=== PATIENT | female | born 1940 | race Hispanic/Latino ===

== ENCOUNTER 2019-11-05 09:35 | Observation (INO) | payer MEDICARE, OTHER ==
--- OUTSIDE RECORDS SUMMARY | 2019-11-05 09:38 | XMS REPORT | Summary of Care ---
:[address] [facility] - [facility] Address [address] [place] [address] Care Team Providers Name Role Phone Angella Skelton MD Primary Care Provider Reason for Referral Radiology Services (Routine) Status Reason Specialty Diagnoses / Referred By Referred To Procedures Contact Contact Closed Diagnostic Diagnoses History of breast problem Disorder of breast N64.9 (ICD-10-CM) - Disorder of breast Z87.898 (ICD-10-CM) - History of breast problem Huyen Serrano MD Radiology Procedures BI ULTRASOUND BREAST LIMITED RIGHT CHG US BREAST UNI REAL TIME WITH IMAGE LIMITED [id number] - BI ULTRASOUND BREAST LIMITED RIGHT [id number] - CHG US BREAST UNI REAL TIME WITH IMAGE LIMITED [address] [place] [address] DR. Stauffer [address] [place] [address] Radiology Services (Routine) Status Reason Specialty Diagnoses / Referred By Referred To Procedures Contact Contact Closed Diagnostic Diagnoses History of breast problem Disorder of breast N64.9 (ICD-10-CM) - Disorder of breast Z87.898 (ICD-10-CM) - History of breast problem Huyen Serrano MD Radiology Procedures BI ULTRASOUND BREAST LIMITED RIGHT CHG US BREAST UNI REAL TIME WITH IMAGE LIMITED [id number] - BI ULTRASOUND BREAST LIMITED RIGHT [id number] - CHG US BREAST UNI REAL TIME WITH IMAGE LIMITED [address] [place] [address] DR. Stauffer [address] [place] [address] Reason for Visit Radiology Services (Routine) Status Reason Specialty Diagnoses / Referred By Referred To Procedures Contact Contact Closed Diagnostic Diagnoses History of breast problem Disorder of breast N64.9 (ICD-10-CM) - Disorder of breast Z87.898 (ICD-10-CM) - History of breast problem Huyen Serrano MD Radiology Procedures BI ULTRASOUND BREAST LIMITED RIGHT CHG US BREAST UNI REAL TIME WITH IMAGE LIMITED [id number] - BI ULTRASOUND BREAST LIMITED RIGHT [id number] - CHG US BREAST UNI REAL TIME WITH IMAGE LIMITED [address] [place] [address] DR. [address] [place] [address] Encounter Details Date Type Department Care Team Description 05/23/2019 Hospital Encounter [facility] Huyen Serrano MD Arrived [facility] [address] [place] [address] [place] [address] [address] [place], [place] [address] Allergies No Known Allergiesdocumented as of this encounter (statuses as of 05/24/2019) Medications Medication Sig Dispensed Refills Start Date End Date Status montelukast 10 mg Take 1 tablet by 90 tablet 3 12/10/2018 Active tabletIndications: mouth daily. Other seasonal allergic rhinitis metoprolol succinate XL Take 1 tablet by 90 tablet 3 12/10/2018 Active 25 mg 24 hr mouth daily. tabletIndications: Hypertension, unspecified type atorvastatin 40 mg TAKE 1 TABLET BY 90 tablet 3 12/10/2018 Active tabletIndications: MOUTH AT BEDTIME Mixed hyperlipidemia estradiol 0.01 % (0.1 Insert 1 g into 42.5 g 6 01/02/2019 Active mg/gram) vaginal vagina daily. creamIndications: Postmenopausal atrophic vaginitis TURMERIC ORAL Take by mouth. 0 Active calcium carb and Take 1 180 tablet 3 02/06/2019 Active citrate-vitD3 (CITRACAL TAB-CAP/M2 by + D SLOW RELEASE) 600 mouth 2 (two) mg calcium- 500 unit times daily. TbSRIndications: Senile osteoporosis ibuprofen 600 mg Take 1 tablet by 30 tablet 0 05/02/2019 Active tabletIndications: mouth 3 (three) Strain of neck muscle, times daily with initial encounter meals. Diclofenac Sodium 1 % Take 2-4 grams 100 g 3 05/09/2019 Active gelIndications: Chronic three times a pain of left knee, day as needed Muscle spasm for pain ibandronate 150 mg Take 1 tablet by 3 tablet 3 05/09/2019 Active tabletIndications: mouth once every Age-related month. osteoporosis without current pathological fracture cyanocobalamin, vitamin Take by mouth. 0 Active B-12, (VITAMIN B-12 ORAL) documented as of this encounter (statuses as of 05/24/2019) Active Problems Problem Noted Date Recurrent UTI 01/09/2019 Overview: 02/06/19 - urine culture no growth Nocturia 01/02/2019 Postmenopausal atrophic vaginitis 01/02/2019 Overview: December 2018 - intravaginal Estrogen cream started. Urinary urgency 01/02/2019 Dysuria 01/02/2019 Recurrent colitis due to Clostridium difficile 09/16/2018 Fever of unknown origin 09/15/2018 FUO (fever of unknown origin) 09/14/2018 Fall 09/14/2018 C. difficile colitis 08/04/2018 SIRS (systemic inflammatory response syndrome) 08/02/2018 Mixed incontinence 09/27/2016 History of bladder repair surgery 09/14/2016 History of hysterectomy 09/14/2016 Back pain 05/11/2016 Foot pain 05/11/2016 Pre-ulcerative calluses 01/17/2016 Other seasonal allergic rhinitis 01/17/2016 Chronic left shoulder pain 01/17/2016 Leg skin lesion, left 01/17/2016 Seborrheic keratosis 01/17/2016 Post-nasal drainage 07/27/2015 Sore throat 07/27/2015 Insomnia 07/27/2015 Hypotension due to drugs 07/27/2015 Bradycardia, drug induced 07/27/2015 Osteoarthritis 01/22/2015 Essential hypertension, benign 01/21/2015 Mixed hyperlipidemia 01/21/2015 Osteoporosis 01/21/2015 Rosacea 01/21/2015 Depression 01/21/2015 documented as of this encounter (statuses as of 05/24/2019) Resolved Problems Problem Noted Date Resolved Date OAB (overactive bladder) 01/21/2015 10/14/2015 Urinary incontinence, nocturnal enuresis 01/21/2015 10/14/2015 documented as of this encounter (statuses as of 05/24/2019) Immunizations Name Administration Dates Next Due Influenza High Dose 08/10/2018, 08/10/2016 Influenza Virus Vaccine Quad ID [id number] 08/03/2015 Pneumococcal 13 Conjugate, PCV13 (Prevnar 13) 10/04/2016 Tdap 02/15/2016 Zoster(Zostavax)(Shingles) 10/04/2016 documented as of this encounter Social History Tobacco Use Types Packs/Day Years Used Date Never Smoker Smokeless Tobacco: Never Used Alcohol Use Drinks/Week oz/Week Comments No 0 Standard drinks or equivalent 0.0 Sex Assigned at Date Recorded Not on file Job Start Date Occupation Industry Not on file Not on file Not on file Travel History Travel Start Travel End No recent travel history available. documented as of this encounter Last Filed Vital Signs Not on filedocumented in this encounter Plan of Treatment Date Type Specialty Care Team Description 08/09/2019 Office Visit Internal Medicine Angella Skelton MD [address] [place] [address] Dr Stauffer [address] [place] [address] [phone] 02/05/2020 Office Visit Endocrinology Diabetes & Jose Alfredo Partida MD [address] [address] [phone] 05/18/2020 Office Visit Obstetrics & Gynecology Huyen Serrano MD [address] [place] [address] DR. Stauffer [address] [place] [address] [phone] Health Maintenance Due Date Last Done Comments PNEUMOCOCCAL VACCINES 65+ 10/04/2017 10/04/2016 (2 of 2 - PPSV23) Medicare Wellness Visit 12/04/2018 12/04/2017 INFLUENZA VACCINE 06/23/2019 08/10/2018, 08/10/2016, 08/03/2016 (Previously completed), Additional history exists Zoster Recombinant Vaccine 12/13/2019 10/04/2016 Postponed from ([employer]) (2 of 3) 11/29/2016 (Insurance / Financial) DTaP,Tdap,and Td Vaccines 02/14/2026 02/15/2016 (2 - Td) Osteoporosis Screening Completed 12/21/2018 documented as of this encounter Implants Implanted Type Area Brewery Cellar Worker Device Identifier Shelf Expiration Model / Date Serial / Lot Left Shoulder Hardware documented as of this encounter Procedures Procedure Name Priority Date/Time Associated Comments Diagnosis BI ULTRASOUND BREAST Routine 05/23/2019 3:24 PM History of breast Results for this LIMITED RIGHT CDT problem procedure are in Disorder of breast the results section. documented in this encounter Results BI ULTRASOUND BREAST LIMITED RIGHT (05/23/2019 3:24 PM CDT) Specimen Narrative Performed At Examination: PACS BI ULTRASOUND BREAST LIMITED RIGHT History: Patient is 79 year old and is seen for:If applicable. No relevant family history has been documented for this patient. No relevant hormone history has been documented for this patient. No relevant surgical history has been documented for this patient. No relevant medical history has been documented for this patient. Comparisons: 05/22/2017 SCREENING DIGITAL BREAST CAITLIN, 05/18/2016 DIGITAL MAMMOGRAM, SCREENING, and 05/15/2015 DIGITAL MAMMOGRAM, SCREENING HISTORY: Palpable mass in right breast. TECHNIQUE: Retroareolar/periareolar regions of the right breast were evaluated in radial/antiradial/sagittal/coronal planes both by the technologist and by me. Female technologist was present in the room during all imaging evaluations. FINDINGS: No solid mass detected. An oval-shaped anechoic lesion of approximately 4.3 x 2.2 mm size was noted in the retroareolar region consistent with a small cyst. CONCLUSIONS: No worrisome solid masses detected. Annual bilateral mammography evaluation is appropriate. ACR classification: Category II. Recommendation: Annual mammographic follow-up - Right BI-RADS Category: Right 2 - Benign Performing Organization Address City/State/Zipcode Phone Number PACS documented in this encounter Visit Diagnoses Diagnosis History of breast problem Disorder of breast Unspecified breast disorder documented in this encounter Insurance Payer Benefit Plan / Subscriber ID Effective Dates Phone Address Type Group MEDICARE MEDICARE PART xxxxxxxxxxx 2005-Eugene [phone] [address] Medicare A & B t 2 [id number] [address] [phone] ([place]) [place] [address] documented as of this encounter
--- OUTSIDE RECORDS SUMMARY | 2019-11-05 09:38 | XMS REPORT | Summary of Care ---
:1940 Author Organization [facility] - [facility] Address [address] [place] [address] Care Team Providers Name Role Phone Angella Skelton MD Primary Care Provider Reason for Referral Radiology Services (Routine) Status Reason Specialty Diagnoses / Referred By Referred To Procedures Contact Contact Closed Diagnostic Diagnoses Disorder of breast History of breast problem N64.9 (ICD-10-CM) - Disorder of breast Z87.898 (ICD-10-CM) - History of breast problem Serrano, Huyen Cam, Radiology Procedures BI DIAGNOSTIC MAMMOGRAM BILATERAL CHG DIAGNOSTIC MAMMOGRAPHY COMPUTER-AIDED DETCJ BI [id number] - BI DIAGNOSTIC MAMMOGRAM BILATERAL 95095 - CHG DIAGNOSTIC MAMMOGRAPHY COMPUTER-AIDED DETCJ JIMMIE DE PAZ [address] [place] [address] [place] [address] Radiology Services (Routine) Status Reason Specialty Diagnoses / Referred By Referred To Procedures Contact Contact Closed Diagnostic Diagnoses Disorder of breast History of breast problem N64.9 (ICD-10-CM) - Disorder of breast Z87.898 (ICD-10-CM) - History of breast problem Serrano, Huyen Cam, Radiology Procedures BI DIAGNOSTIC MAMMOGRAM BILATERAL CHG DIAGNOSTIC MAMMOGRAPHY COMPUTER-AIDED DETCJ BI [id number] - BI DIAGNOSTIC MAMMOGRAM BILATERAL 75909 - CHG DIAGNOSTIC MAMMOGRAPHY COMPUTER-AIDED DETCJ JIMMIE DE PAZ [address] [place] [address] [place] [address] Reason for Visit Radiology Services (Routine) Status Reason Specialty Diagnoses / Referred By Referred To Procedures Contact Contact Closed Diagnostic Diagnoses Disorder of breast History of breast problem N64.9 (ICD-10-CM) - Disorder of breast Z87.898 (ICD-10-CM) - History of breast problem Huyen Serrano, Radiology Procedures BI DIAGNOSTIC MAMMOGRAM BILATERAL CHG DIAGNOSTIC MAMMOGRAPHY COMPUTER-AIDED DETCJ BI [id number] - BI DIAGNOSTIC MAMMOGRAM BILATERAL 20286 - CHG DIAGNOSTIC MAMMOGRAPHY COMPUTER-AIDED DETCJ BI [address] [place] [address] DR. Stauffer [address] [place] [address] Encounter Details Date Type Department Care Team Description 05/23/2019 Hospital Encounter [facility] Huyen Serrano MD Arrived [facility] [address] [place] [address] [place] [address] [facility] [address] [place] [address] [phone] Allergies No Known Allergiesdocumented as of this [...] Office Visit Internal Medicine Angella Skelton MD [address] [place] [address] Dr [address]ffer [address] [place] [address] [phone] 02/05/2020 Office Visit Endocrinology Diabetes & Jose Alfredo Partida MD [address] [address] 05/18/2020 Office Visit Obstetrics & Gynecology Huyen Serrano MD [address] [place] [address] DR. Stauffer [address] [place] [address] [phone] Health Maintenance Due Date Last Done Comments [...] of this encounter Implants Implanted Type Area Heavy Coil Winder Device Identifier Shelf Expiration Model / Date Serial / Lot Left Shoulder Hardware documented as of this encounter Procedures Procedure Name Priority Date/Time Associated Comments Diagnosis BI DIAGNOSTIC Routine 05/23/2019 2:32 PM Disorder of breast Results for this MAMMOGRAM BILATERAL CDT History of breast procedure are in problem the results section. documented in this encounter Results BI DIAGNOSTIC MAMMOGRAM BILATERAL (05/23/2019 2:32 PM CDT) Specimen Narrative Performed At Examination: PACS BI DIAGNOSTIC MAMMOGRAM BILATERAL History: Patient is 79 year old and is seen for:Right breast feels lumpy at the areolar portion. No relevant family history has been documented for this patient. No relevant hormone history has been documented for this patient. No relevant surgical history has been documented for this patient. No relevant medical history has been documented for this patient. Computer-aided detection (CAD) utilized. Comparisons: 05/22/2017 SCREENING DIGITAL BREAST CAITLIN (No Change), 05/18/2016 DIGITAL MAMMOGRAM, SCREENING (No Change), and 05/15/2015 DIGITAL MAMMOGRAM, SCREENING (No Change) Findings: The breasts have scattered areas of fibroglandular density. Right There are large joanna-like calcifications seen in the right breast. Left There are large joanna-like and round calcifications seen in the left breast. Impression: No signs of malignancy. However, we will proceed with ultrasound study of RIGHT breast because of abnormal physical examination. Recommendation: Ultrasound - Right Annual mammographic follow-up - Left BI-RADS Category: Left: 2 - Benign Right: 0 - Incomplete: Needs Additional Imaging Evaluation Overall: 0 - Incomplete: Needs Additional Imaging Evaluation Performing Organization Address City/State/Zipcode Phone Number PACS documented in this encounter Visit Diagnoses Diagnosis Disorder of breast Unspecified breast disorder History of breast problem documented in this encounter Insurance Payer Benefit Plan / Subscriber ID Effective Dates Phone Address Type Group MEDICARE MEDICARE PART xxxxxxxxxxx 2005-Eugene [phone] [address] Medicare A & B t 2 [id number] [address] [phone] ([place]) [place] [address] documented as of this encounter
--- OUTSIDE RECORDS SUMMARY | 2019-11-05 09:38 | XMS REPORT | Summary of Care ---
:1940 Author Organization [facility] - Health Address [address] [id number] Care Team Providers Name Role Phone Angella Skelton MD Primary Care Provider Encounter Details Date Type Department Care Team Description 05/23/2019 Orders Only [facility] Doctor Unassigned, No [address] [facility] [place] [address] [address] [place] [address] Allergies No Known Allergiesdocumented as of this encounter (statuses as of 05/23/2019) Medications Medication Sig Dispensed Refills Start Date [...] as of this encounter (statuses as of 05/23/2019) Active Problems Problem Noted Date Recurrent UTI [...] as of this encounter (statuses as of 05/23/2019) Resolved Problems Problem Noted Date Resolved Date OAB (overactive bladder) 01/21/2015 10/14/2015 Urinary incontinence, nocturnal enuresis 01/21/2015 10/14/2015 documented as of this encounter (statuses as of 05/23/2019) Immunizations Name Administration Dates Next Due Influenza [...] Treatment Date Type Specialty Care Team Description 05/23/2019 Appointment Radiology Huyen Serrano MD [address] [place] [address] DR. Stauffer [address] [place] [address] [phone] 05/23/2019 Appointment Radiology Huyen Serrano MD [address] [place] [address] DR. Stauffer [address] [place] [address] [phone] 08/09/2019 Office Visit Internal Medicine Angella Skelton MD [address] [place] [address] Dr Stauffer [address] [place] [address] 02/05/2020 Office Visit Endocrinology Diabetes & Jose Alfredo Partida MD Metabolism [address] [place] [address] [phone] 05/18/2020 Office Visit Obstetrics & Gynecology Huyen Serrano MD [address] [place] [address] DR. Stauffer [address] [place] [address] [phone] Health Maintenance Due Date Last Done Comments [...] of this encounter Implants Implanted Type Area Sumo Wrestler Device Identifier Shelf Expiration Model / Date Serial / Lot Left Shoulder Hardware documented as of this encounter Procedures Procedure Name Priority Date/Time Associated Diagnosis Comments ASSIGNMENT OF BENEFITS Routine 05/23/2019 1:20 PM CDT documented in this encounter Results Not on filedocumented in this encounter Insurance Payer Benefit Plan Subscriber ID Effective Phone Address Type / Group Dates MEDICARE MEDICARE PART xxxxxxxxxxx 2005-Pres [phone] [address] Medicare A & B ent [id number] SU[place]ERR [id number] [facility]DIG[facility]ARE [facility] [id number] 2019-10/[address] [place] [address] 02/2020 [place] [address] documented as of this encounter
--- OUTSIDE RECORDS SUMMARY | 2019-11-05 09:38 | XMS REPORT ---
:1940 Author Organization [facility] Address [address] [place] [address] Dr. Dsouza [address] [place] [address] Care Team Providers Name Role Phone Unavailable Unavailable Unavailable Problems This patient has no known problems. Allergies, Adverse Reactions, Alerts This patient has no known allergies or adverse reactions. Medications This patient has no known medications.
--- OUTSIDE RECORDS SUMMARY | 2019-11-05 09:39 | XMS REPORT | Summary of Care ---
:1940 Author Organization [facility] - [facility] Address [address] [id number] Care Team Providers Name Role Phone Angella Skelton MD Primary Care Provider Reason for Referral (Routine) Status Reason Specialty Diagnoses / Referred By Referred To Procedures Contact Contact New Request ORT-ORTHOPAEDIC Diagnoses Closed fracture of multiple pubic rami, left, initial encounter David Moreno , SURGERY Procedures Discharge Follow-Up: Specialty Service ORT-ORTHOPAEDIC SURGERY; [address] [place] [address]. [address] [id number] (Routine) Status Reason Specialty Diagnoses / Referred By Contact Referred To Procedures Contact New Request Diagnoses Closed fracture of multiple pubic rami, left, initial encounter David Moreno MD Jaramillo, Procedures Discharge Follow-up: PCP ANGELLA SKELTON; 3-[address] [place] [address] Angella Stacy MD [facility] [address] [place] [address] [address] [phone] [place] [address] Phone: MRI/CAT Scan (STAT) Status Reason Specialty Diagnoses / Referred By Referred To Procedures Contact Contact New Request Diagnostic Diagnoses Closed fracture of multiple pubic rami, left, initial encounter Paredes, Ting S , Radiology Procedures CT PELVIS WO CONTRAST PAC [address] [place] [address] MRI/CAT Scan (STAT) Status Reason Specialty Diagnoses / Referred By Referred To Procedures Contact Contact New Request Diagnostic Diagnoses Closed fracture of multiple pubic rami, left, initial encounter Paredes, Ting S , Radiology Procedures CT PELVIS WO CONTRAST PAC [address] [place] [address] Radiology Services (STAT) Status Reason Specialty Diagnoses / Referred By Referred To Procedures Contact Contact New Request Diagnostic Diagnoses Fall, initial encounter Left hip pain Paredes, Ting S, Radiology Procedures XR PELVIS <3 VW PAC [address] [place] [address] Radiology Services (STAT) Status Reason Specialty Diagnoses / Referred By Referred To Procedures Contact Contact New Request Diagnostic Diagnoses Fall, initial encounter Left hip pain Paredes, Ting S, Radiology Procedures XR PELVIS <3 VW PAC [address] [place] [address] Radiology Services (STAT) Status Reason Specialty Diagnoses / Referred By Referred To Procedures Contact Contact New Request Diagnostic Diagnoses Fall, initial encounter Left hip pain Neck pain Paredes, Ting S, Radiology Procedures XR HIPS 2 VW LEFT PAC [address] [place] [address] MRI/CAT Scan (STAT) Status Reason Specialty Diagnoses / Referred By Referred To Procedures Contact Contact New Request Diagnostic Diagnoses Fall, initial encounter Left hip pain Neck pain Paredes, Ting S, Radiology Procedures CT CERVICAL SPINE WO CONTRAST PAC [address] [place] [address] Radiology Services (STAT) Status Reason Specialty Diagnoses / Referred By Referred To Procedures Contact Contact New Request Diagnostic Diagnoses Fall, initial encounter Left hip pain Neck pain Paredes, Ting S, Radiology Procedures XR HIPS 2 VW LEFT PAC [address] [place] [address] MRI/CAT Scan (STAT) Status Reason Specialty Diagnoses / Referred By Referred To Procedures Contact Contact New Request Diagnostic Diagnoses Fall, initial encounter Left hip pain Neck pain Ting Paredes, Radiology Procedures CT CERVICAL SPINE WO CONTRAST [address] [place] [address] Reason for Visit Reason Comments Fall Auth/Cert Status Reason Specialty Diagnoses / Referred By Referred To Procedures Contact Contact Emergency Medicine [facility] Emergency Dept [address] [place] [address] Dr [place] [id number] Encounter Details Date Type Department Care Team Description 07/06/[address] - [facility] Medicine Ting Paredes, [address] [place] [id number] Closed fracture of 07/08/2019 Encounter Surgery Unit Mindy Varela MD [address] [place] [phone] multiple pubic [address] [place] [address] rami, left, initial Dr encounter [place] Nguyen [id number] Allergies No Known Allergiesdocumented as of this encounter (statuses as of 07/08/2019) Medications Medication Sig Dispensed Refills Start Date End Date Status montelukast 10 mg Take 1 tablet 90 tablet 3 12/10/2018 Active tabletIndications: by mouth daily. Other seasonal allergic rhinitis metoprolol succinate Take 1 tablet 90 tablet 3 12/10/2018 Active XL 25 mg 24 hr by mouth daily. tabletIndications: Hypertension, unspecified type atorvastatin 40 mg TAKE 1 TABLET 90 tablet 3 12/10/2018 Active tabletIndications: BY MOUTH AT Mixed hyperlipidemia BEDTIME estradiol 0.01 % (0.1 Insert 1 g into 42.5 g 6 01/02/2019 Active mg/gram) vaginal vagina daily. creamIndications: Postmenopausal atrophic vaginitis TURMERIC ORAL Take by mouth. 0 Active calcium carb and Take 1 180 tablet 3 02/06/2019 Active citrate-vitD3 TAB-CAP/M2 by (CITRACAL + D SLOW mouth 2 (two) RELEASE) 600 mg times daily. calcium- 500 unit TbSRIndications: Senile osteoporosis ibuprofen 600 mg Take 1 tablet 30 tablet 0 05/02/2019 Active tabletIndications: by mouth 3 Strain of neck muscle, (three) times initial encounter daily with meals. Diclofenac Sodium 1 % Take 2-4 grams 100 g 3 05/09/2019 Active gelIndications: three times a Chronic pain of left day as needed knee, Muscle spasm for pain ibandronate 150 mg Take 1 tablet 3 tablet 3 05/09/2019 Active tabletIndications: by mouth once Age-related every month. osteoporosis without current pathological fracture cyanocobalamin, Take by mouth. 0 Active vitamin B-12, (VITAMIN B-12 ORAL) docusate 100 mg Take 1 capsule 60 capsule 0 07/08/2019 08/07/2019 Active capsuleIndications: by mouth 2 Closed fracture of (two) times multiple pubic rami, daily for 30 left, initial days. encounter lidocaine 5 % (700 Apply 1 Patch 7 Patch 0 07/08/2019 07/15/2019 Active mg/patch) to area(s) patchIndications: daily for 7 Closed fracture of days. multiple pubic rami, left, initial encounter traMADol 50 mg Take 1 tablet 14 tablet 0 07/08/2019 Active tabletIndications: by mouth every Closed fracture of 8 (eight) hours multiple pubic rami, as needed for left, initial Pain (scale encounter 4-6). Polyethylene Glycol Take 1 Packet 8 Packet 0 07/08/2019 08/07/2019 Active 3350 17 gram by mouth 2 powderIndications: (two) times Closed fracture of weekly on multiple pubic rami, Monday and left, initial Monday for 30 encounter days. documented as of this encounter (statuses as of 07/08/2019) Active Problems Problem Noted Date Closed fracture of multiple pubic rami, left, initial encounter 07/06/2019 Recurrent UTI 01/09/2019 Overview: 02/06/19 - urine [...] as of this encounter (statuses as of 07/08/2019) Resolved Problems Problem Noted Date Resolved Date OAB (overactive bladder) 01/21/2015 10/14/2015 Urinary incontinence, nocturnal enuresis 01/21/2015 10/14/2015 documented as of this encounter (statuses as of 07/08/2019) Immunizations Name Administration Dates Next Due Influenza High Dose 08/10/2018, 08/10/2016 Influenza Virus Vaccine Quad ID [id number] YRS 08/03/2015 Pneumococcal 13 Conjugate, PCV13 (Prevnar 13) 10/04/2016 Tdap 02/15/2016 Zoster(Zostavax)(Shingles) 10/04/2016 documented as of this encounter Social History Tobacco Use Types Packs/Day Years Used Date Never Smoker Smokeless Tobacco: Never Used Tobacco Cessation: Counseling Given: No Alcohol Use Drinks/Week oz/Week Comments No 0 Standard drinks or equivalent 0.0 Financial Resource Strain Answer Date Recorded How hard is it for you to pay for the very basics like Not hard at all 2018 food, housing, medical care, and heating? Food Insecurity Answer Date Recorded Within the past 12 months, you worried that your food would Never true 2018 run out before you got money to buy more. Within the past 12 months, the food you bought just didn't Never true 2018 last and you didn't have money to get more. Transportation Needs Answer Date Recorded In the past 12 months, has lack of transportation kept you from No 07/06/2019 medical appointments or from getting medications? In the past 12 months, has lack of transportation kept you from No 07/06/2019 meetings, work, or getting things needed for daily living? Sex Assigned at Date Recorded Not on file Job Start Date Occupation Industry Not on file Not on file Not on file Travel History Travel Start Travel End No recent travel history available. documented as of this encounter Last Filed Vital Signs Vital Sign Reading Time Taken Comments Blood Pressure 127/67 07/08/2019 3:36 PM CDT Pulse 60 07/08/2019 3:36 PM CDT Temperature 37.1 C (98.7 F) 07/08/2019 3:36 PM CDT Respiratory Rate 18 07/08/2019 3:36 PM CDT Oxygen Saturation 94% 07/08/2019 3:36 PM CDT Inhaled Oxygen Concentration - - Weight 69 kg (152 lb 1.6 oz) 07/06/2019 9:20 PM CDT Height 147.3 cm (4' 10") 07/06/2019 9:20 PM CDT Body Mass Index 31.79 07/06/2019 9:20 PM CDT documented in this encounter Discharge Summaries David Moreno MD - 07/08/2019 2:03 PM CDT Internal Medicine Discharge Summary ADMIT DATE: 07/06/2019 DISCHARGE DATE: 07/08/2019 ATTENDING MD: David Moreno MD PCP: Angella Skelton FINAL DIAGNOSIS: (the reason, after study, for admitting the patient to the hospital) Closed fracture of multiple pubic rami, left, initial encounter HOSPITAL COURSE: Left pubic rami fracture with hematoma s/p mechanical fall Ortho Dr. Verduzco on board - Mobilize as tolerated with walker, ok to be WBAT. F/U as needed, anticipate significant pain x 2 weeks with healing at 6 weeks. Scheduled NSAIDs. Narcotics prn. Lidocaine patch PT consulted for placement H/h stable Patient discharged to [facility] rehab HTN On metoprolol Hx of osteoporosis, hyperlipidemia, superficial thrombophlebitis, c diff No diarrhea reported Prophylaxis: DVT- enoxaparin Full Code, advance care planning discussed on admission CONSULTING SERVICES: Dr. Verduzco - ortho PROCEDURES: none SIGNIFICANT LAB/X-RAYS: LABS - reviewed pertinent labs as below: CBC BMP PT/INR WBC (10*3/L) Date Value 07/07/2019 5.53 NA (mmol/L) Date Value 07/07/2019 140 No results found for: PT RBC (10*6/L) Date Value 07/07/2019 4.15 K (mmol/L) Date Value 07/07/2019 4.3 No results found for: PTINR PLT (10*3/L) Date Value 07/07/2019 85 (L) CALCIUM (mg/dL) Date Value 07/07/2019 9.3 HGB (g/dL) Date Value 07/07/2019 13.0 CL (mmol/L) Date Value 07/07/2019 106 aPTT HCT (%) Date Value 07/07/2019 39.8 BUN (mg/dL) Date Value 07/07/2019 27 (H) No results found for: APTTPAT CREATININE (mg/dL) Date Value 07/07/2019 0.58 IMAGING - reviewed Hospital Encounter on 07/06/19 XR PELVIS <3 VW Narrative EXAM: XR PELVIS <3 VW HISTORY: pelvis and left hip pain COMPARISON: None available. FINDINGS: Radiographs of the pelvis demonstrate suspected discontinuity of the left superior pubic rami. A nondisplaced fracture of the left inferior pubic ramus is also noted. Sclerosis of the bilateral sacroiliac joints is identified. Moderate to severe lumbosacral junction spondylosis and facet arthropathy are seen. Mild soft tissue swelling is noted diffusely about the pelvis. Hernia mesh is seen. Impression Left superior and inferior pubic rami fractures. Dayna Angulo MD., have reviewed this study and agree with the above report. XR HIPS 2 VW LEFT Narrative EXAM: XR HIPS 2 VW LEFT HISTORY: hip pain left, fall COMPARISON: Left hip radiograph 09/14/2018. FINDINGS: Radiographs of the left hip demonstrate no fracture or dislocation. Mild joint space narrowing, subchondral sclerosis affects the left hip. The soft tissues are unremarkable. Impression No acute bony abnormality. Mild osteoarthrosis of the left hip. REPORT CHANGE: Left superior-inferior pubic rami fractures are seen, better evaluated on the subsequently performed CT pelvis. Dayna Angulo MD., have reviewed this study and agree with the above report. CT PELVIS WO CONTRAST Narrative EXAM: CT PELVIS WO CONTRAST HISTORY: Pelvic fx, known or suspected COMPARISON: None available. TECHNIQUE: Helical CT scan of the pelvis was performed without intravenous contrast. Coronal, sagittal and 3-D reconstructions were then generated. FINDINGS: CT imaging of the pelvis demonstrate: BONE AND JOINT: Minimally displaced segmental fracture of the right superior pubic ramus and nondisplaced fracture of the left inferior pubic ramus are identified. SOFT TISSUES/INTRAPELVIC CONTENTS: Swelling with fluid collection is noted within the left pelvic sidewall adjacent to the pubic rami fractures and likely represents early hematoma formation. This hematoma exerts mass effect in the pelvis in the form of rightward displacement of the urinary bladder. The urinary bladder is mildly distended. Prior hysterectomy. Round mixed hyperdense/hypodense calcified lesion adjacent to the rectum may represent fat necrosis (axial image 48). Impression Left superior and inferior pubic rami fractures with adjacent intrapelvic hematoma. IDayna MD., have reviewed this study and agree with the above report. CT CERVICAL SPINE WO CONTRAST Narrative * * * * * * * * ORIGINAL REPORT * * * * * * * * CT CERVICAL SPINE WO CONTRAST HISTORY: Female 79 years C-spine trauma, high clinical risk (NEXUS/CCR) COMPARISON: None TECHNIQUE: Routine CT cervical spine without contrast FINDINGS: Slight reversal of the normal cervical lordosis. The vertebral bodies are normal in height and in normal alignment. No facet fracture or subluxation is present. The craniocervical junction is intact. The prevertebral soft tissues are unremarkable. Moderate spondylosis and uncinate hypertrophy are present at C5-C6 with no more than minimal degenerative changes at the remaining cervical levels. Impression No acute cervical fracture or traumatic malalignment Subjective has pain with movement No fevers/chills, sob, chest pain, confusion,n abd pain, n/v Ok with discharge plan to encompass today Physical Exam General: No respiratory distress Skin: No rash or lesions, normal turgot Neuro: AAOx3, no focal deficits Psych: Normal affect RRR Good air entry b/l FUNCTIONAL STATUS: ambulate with assistance DISCHARGE CONDITION: fair COGNITIVE STATUS: cognitively intact DIET: regular ACTIVITY: as tolerated DISCHARGE MEDICATIONS: Current Discharge Medication List START taking these medications Details docusate (COLACE) 100 mg Take 100 mg by mouth 2 (two) times daily. Qty: 60 capsule, Refills: 0 Start date: 07/08/2019, End date: 08/07/2019 Associated Diagnoses: Closed fracture of multiple pubic rami, left, initial encounter lidocaine (LIDODERM) 1 Patch Apply 1 Patch to area(s) daily. Qty: 7 Patch, Refills: 0 Start date: 07/08/2019, End date: 07/15/2019 Associated Diagnoses: Closed fracture of multiple pubic rami, left, initial encounter Polyethylene Glycol 3350 (MIRALAX) 17 g Take 17 g by mouth 2 (two) times weekly on Monday and Monday. Qty: 8 Packet, Refills: 0 Start date: 07/08/2019, End date: 08/07/2019 Associated Diagnoses: Closed fracture of multiple pubic rami, left, initial encounter traMADol (ULTRAM) 50 mg Take 50 mg by mouth every 8 (eight) hours as needed for Pain (scale 4-6). Qty: 14 tablet, Refills: 0 Start date: 07/08/2019 Associated Diagnoses: Closed fracture of multiple pubic rami, left, initial encounter CONTINUE these medications which have NOT CHANGED Details cyanocobalamin, vitamin B-12, (VITAMIN B-12 ORAL) Take by mouth. Diclofenac Sodium 1 % gel Take 2-4 grams three times a day as needed for pain Qty: 100 g, Refills: 3 Associated Diagnoses: Chronic pain of left knee; Muscle spasm ibandronate (BONIVA) 150 mg Take 150 mg by mouth once every month. Qty: 3 tablet, Refills: 3 Associated Diagnoses: Age-related osteoporosis without current pathological fracture ibuprofen (IBU) 600 mg Take 600 mg by mouth 3 (three) times daily with meals. Qty: 30 tablet, Refills: 0 Associated Diagnoses: Strain of neck muscle, initial encounter calcium carb and citrate-vitD3 (CITRACAL + D SLOW RELEASE) 1 TAB-CAP/M2 Take 1 TAB-CAP/M2 by mouth 2(two) times daily. Qty: 180 tablet, Refills: 3 Associated Diagnoses: Senile osteoporosis TURMERIC ORAL Take by mouth. estradiol (ESTRACE) 1 g Insert 1 g into vagina daily. Qty: 42.5 g, Refills: 6 Associated Diagnoses: Postmenopausal atrophic vaginitis atorvastatin 40 mg tablet TAKE 1 TABLET BY MOUTH AT BEDTIME Qty: 90 tablet, Refills: 3 Associated Diagnoses: Mixed hyperlipidemia metoprolol succinate XL (TOPROL XL) 25 mg Take 25 mg by mouth daily. Qty: 90 tablet, Refills: 3 Associated Diagnoses: Hypertension, unspecified type montelukast (SINGULAIR) 10 mg Take 10 mg by mouth daily. Qty: 90 tablet, Refills: 3 Associated Diagnoses: Other seasonal allergic rhinitis PATIENT EDUCATION PROVIDED: medications DISCHARGE: [facility] inpatient rehab FOLLOW-UP APPOINTMENT: Future Appointments Provider Department Dept Phone Center 07/22/2019 1:00 PM Tereso Ham MD [facility] Primary [facility]- [phone] [place] [address] 08/09/2019 3:20 PM Angella Skelton MD [facility] Primary [facility]- [address] [address] [facility] 02/05/2020 11:00 AM JoseA lfredo Partida MD [facility] Endocrinology- [address] [phone] [place] 05/18/2020 10:30 AM Huyen Serrano MD [facility] Women's Healthcare- [address] [address] [facility] Please call paging services at [phone] to contact David Moreno MD with any questions. documented in this encounter Progress Notes Brigida Rosenthal, JDESW - 07/08/2019 3:53 PM CDTSubjective Patient ID: Susy Bryant is a 79 year old female. Care Management Social Functional Assessment Patient Name: Susy Bryant Age: [age] year old Sex: female Patient's Previous Admission Date at [facility]: 09/15/2018 Current diagnosis and co-morbidities: Closed fracture of multiple pubic rami, left Readmission Questions: Was patient discharged from any acute care hospital within the last 30 days: No Social Functional Assessment: Primary language spoken/preferred: Iraqi Mental Status: Alert & Oriented to Person,Place & Time Information given by: Self Patient's support system: Child Name and number of support system: mary alice Caalr [phone] and Bonnie Alex, dtr [phone] 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;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 MPOA: No Living Arrangement: Home Address of living arrangement : [address] [place] [id number] Persons living in home: Self;Child Barriers to returning home: None Baseline functional status- ambulation: Independent Functional status-baseline personal care: Independent Baseline functional status- driving: Dependent Baseline functional status- grocery shopping: Independent Functional status-baseline housekeeping: Independent Functional status-baseline meal prep: Independent Current functional status same as prior: No Current functional status- ambulation: Requires minimal to moderate assistance Current functional status- personal care: Requires minimal to moderate assistance Current functional status- driving: Requires minimal to moderate assistance Current functional status- grocery shopping: Requires minimal to moderate assistance Current functional status-house keeping: Requires minimal to moderate assistance Current functional status- meal preparation: Requires minimal to moderate assistance Do you have a PCP?: Yes Name of PCP: Dr. Skelton [facility] Agency: No Provider Services: No DME Company: No Equipment: Cane Hemodialysis: No Community resources utilized: None Funding Resources: Medicare A & B Prescription coverage plan: Medicare Part D Pharmacy where meds are filled: Other Other pharmacy: [facility] Anticipated services prior to disharge: Continue Medical Eval;PT/OT/ST Expected mode of discharge transportation: Ambulance Additional Recommendations for DC: Medical clearance and [facility] placement Additional info required for discharge planning: Pending medical evaluation Recommended discharge plan: New placement SFA Complete: Social Functional Assessment complete: Yes Alcohol Use Screening (AUDIT-C) How often do you have a drink containing alcohol?: Never SCORE: 0 Did patient elect to have resources provided: No Role of Care Management explained. Any issues or concerns with obtaining/affording your medications at home: no. 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 Review of Systems Objective Physical Exam Assessment/Plan [facility] placement FITZ Luna Community Program Assistant - Care Management [facility] [phone] [email or web address] John Espino MD - 07/07/2019 2:48 PM CDT [facility] Hospitalist Progress Note SUBJECTIVE: Minimal pain with rest today. CURRENT MEDICATIONS - reviewed. Current Facility-Administered Medications Medication Dose Route Frequency Last Rate Last Dose Polyethylene Glycol 3350 (MIRALAX) powder 17 g 17 g Oral BID acetaminophen (TYLENOL) tablet 650 mg 650 mg Oral Q6HPRN atorvastatin (LIPITOR) tablet 40 mg 40 mg Oral QHS docusate (COLACE) capsule 100 mg 100 mg Oral [id number] enoxaparin (LOVENOX) injection 40 mg 40 mg Subcutaneous DAILY Stopped at 07/07/19 0900 HYDROcodone-acetaminophen (NORCO) 10-325 mg tablet 1 tablet 1 tablet Oral Q6HPRN 1 tablet at 07/07/19 0445 ibuprofen (IBU) tablet 600 mg 600 mg Oral TID MEALS 600 mg at 07/07/19 0946 metoprolol succinate XL (TOPROL XL) tablet 25 mg 25 mg Oral DAILY 25 mg at 07/07/19 0946 montelukast (SINGULAIR) tablet 10 mg 10 mg Oral DAILY 10 mg at 07/07/19 0946 morpHINE injection 2 mg 2 mg Slow IV Push Q4HPRN ondansetron (ZOFRAN (PF)) injection 4 mg 4 mg Slow IV Push Q6HPRN traMADol (ULTRAM) tablet 50 mg 50 mg Oral Q8HPRN 50 mg at 07/07/19 0947 PHYSICAL EXAM: BP 122/62 | Pulse 63 | Temp 37.1 C (98.8 F) (Oral) | Resp 16 | Ht 4' 10 " (1.473 m) | Wt 152lb 1.6 oz (69 kg) | SpO2 92% | BMI 31.79 kg/m General: No respiratory distress Skin: No rash or lesions, normal turgot Neuro: AAOx3, no focal deficits Psych: Normal affect LABS/IMAGING - reviewed, pertinent results as below: CBC BMP PT/INR WBC (10*3/L) Date Value 07/07/2019 5.53 NA (mmol/L) Date Value 07/07/2019 140 No results found for: PT RBC (10*6/L) Date Value 07/07/2019 4.15 K (mmol/L) Date Value 07/07/2019 4.3 No results found for: PTINR PLT (10*3/L) Date Value 07/07/2019 85 (L) CALCIUM (mg/dL) Date Value 07/07/2019 9.3 HGB (g/dL) Date Value 07/07/2019 13.0 CL (mmol/L) Date Value 07/07/2019 106 aPTT HCT (%) Date Value 07/07/2019 39.8 BUN (mg/dL) Date Value 07/07/2019 27 (H) No results found for: APTTPAT CREATININE (mg/dL) Date Value 07/07/2019 0.58 IMAGING- Hospital Encounter on 07/06/19 XR PELVIS <3 VW Narrative EXAM: XR PELVIS <3 VW HISTORY: pelvis and left hip pain COMPARISON: None available. FINDINGS: Radiographs of the pelvis demonstrate suspected discontinuity of the left superior pubic rami. A nondisplaced fracture of the left inferior pubic ramus is also noted. Sclerosis of the bilateral sacroiliac joints is identified. Moderate to severe lumbosacral junction spondylosis and facet arthropathy are seen. Mild soft tissue swelling is noted diffusely about the pelvis. Hernia mesh is seen. Impression Left superior and inferior pubic rami fractures. Dayna Angulo MD., have reviewed this study and agree with the above report. XR HIPS 2 VW LEFT Narrative EXAM: XR HIPS 2 VW LEFT HISTORY: hip pain left, fall COMPARISON: Left hip radiograph 09/14/2018. FINDINGS: Radiographs of the left hip demonstrate no fracture or dislocation. Mild joint space narrowing, subchondral sclerosis affects the left hip. The soft tissues are unremarkable. Impression No acute bony abnormality. Mild osteoarthrosis of the left hip. REPORT CHANGE: Left superior-inferior pubic rami fractures are seen, better evaluated on the subsequently performed CT pelvis. Dayna Angulo MD., have reviewed this study and agree with the above report. CT PELVIS WO CONTRAST Narrative EXAM: CT PELVIS WO CONTRAST HISTORY: Pelvic fx, known or suspected COMPARISON: None available. TECHNIQUE: Helical CT scan of the pelvis was performed without intravenous contrast. Coronal, sagittal and 3-D reconstructions were then generated. FINDINGS: CT imaging of the pelvis demonstrate: BONE AND JOINT: Minimally displaced segmental fracture of the right superior pubic ramus and nondisplaced fracture of the left inferior pubic ramus are identified. SOFT TISSUES/INTRAPELVIC CONTENTS: Swelling with fluid collection is noted within the left pelvic sidewall adjacent to the pubic rami fractures and likely represents early hematoma formation. This hematoma exerts mass effect in the pelvis in the form of rightward displacement of the urinary bladder. The urinary bladder is mildly distended. Prior hysterectomy. Round mixed hyperdense/hypodense calcified lesion adjacent to the rectum may represent fat necrosis (axial image 48). Impression Left superior and inferior pubic rami fractures with adjacent intrapelvic hematoma. I, Dayna Kenney MD., have reviewed this study and agree with the above report. CT CERVICAL SPINE WO CONTRAST Narrative * * * * * * * * ORIGINAL REPORT * * * * * * * * CT CERVICAL SPINE WO CONTRAST HISTORY: Female 79 years C-spine trauma, high clinical risk (NEXUS/CCR) COMPARISON: None TECHNIQUE: Routine CT cervical spine without contrast FINDINGS: Slight reversal of the normal cervical lordosis. The vertebral bodies are normal in height and in normal alignment. No facet fracture or subluxation is present. The craniocervical junction is intact. The prevertebral soft tissues are unremarkable. Moderate spondylosis and uncinate hypertrophy are present at C5-C6 with no more than minimal degenerative changes at the remaining cervical levels. Impression No acute cervical fracture or traumatic malalignment ASSESSMENT/PLAN Susy Bryant is a 79 year old female with PMH as listed above, admitted to the hospital with: Left pubic rami fracture with hematoma Ortho Dr. Verduzco on board - Mobilize as tolerated with walker, ok to be WBAT. F/U as needed, anticipate significant pain x 2 weeks with healing at 6 weeks. Scheduled NSAIDs. Narcotics prn. PT consulted SW for SNF placement HTN On metoprolol Prophylaxis: DVT- enoxaparin Stress Ulcer: no indication for prophylaxis Code Status: addressed: Full Disposition: Home John Wallace MD documented in this encounter Plan of Treatment Date Type Specialty Care Team Description 07/22/2019 Office Visit Family Medicine Tereso Ham MD [address] [place] [address] [place] [address] [phone] 08/09/2019 Office Visit Internal Medicine Angella Skelton MD [address] [place] [address] [address] [place] [address] [phone] 02/05/2020 Office Visit Endocrinology Diabetes & PartidaJose Alfredo MD Metabolism [address] [place] [address] [phone] 05/18/2020 Office Visit Obstetrics & Gynecology Huyen Serrano MD [address] [place] [address] [address] [place] [address] [phone] Health Maintenance Due Date Last Done Comments PNEUMOCOCCAL VACCINES 65+ (2 10/04/2017 10/04/2016 of 2 - PPSV23) Medicare Wellness Visit 12/04/2018 12/04/2017 INFLUENZA VACCINE (#1) 2019 08/10/2018, 08/10/2016 Zoster Recombinant Vaccine 12/13/2019 10/04/2016 Postponed from 11/29/2016 (SHINGRIX) (2 of 3) (Insurance / Financial) DTaP,Tdap,and Td Vaccines (2 02/14/2026 02/15/2016 - Td) Osteoporosis Screening Completed 12/21/2018 documented as of this encounter Implants Implanted Type Area Professor Of Art History Device Identifier Shelf Expiration Model / Date Serial / Lot Left Shoulder Hardware documented as of this encounter Procedures Procedure Name Priority Date/Time Associated Comments Diagnosis BASIC METABOLIC PANEL Routine 07/07/2019 9:56 Results for this (NA, K, CL, CO2, AM CDT procedure are in GLUCOSE, BUN, the results CREATININE, CA) section. CBC WITH DIFFERENTIAL Routine 07/07/2019 4:50 Results for this AM CDT procedure are in the results section. CBC WITH DIFF Routine 07/07/2019 4:50 Results for this AM CDT procedure are in the results section. CT PELVIS WO CONTRAST STAT 07/06/2019 8:54 Closed fracture of Results for this PM CDT multiple pubic procedure are in rami, left, initial the results encounter section. XR PELVIS <3 VW STAT 07/06/2019 5:49 Fall, initial Results for this PM CDT encounter procedure are in Left hip pain the results section. CT CERVICAL SPINE WO STAT 07/06/2019 5:16 Fall, initial Results for this CONTRAST PM CDT encounter procedure are in Left hip pain the results Neck pain section. CBC WITH DIFFERENTIAL STAT 07/06/2019 4:38 Fall, initial Results for this PM CDT encounter procedure are in Left hip pain the results Neck pain section. CBC WITH DIFF STAT 07/06/2019 4:38 Fall, initial Results for this PM CDT encounter procedure are in Left hip pain the results Neck pain section. BASIC METABOLIC PANEL STAT 07/06/2019 4:38 Fall, initial Results for this (NA, K, CL, CO2, PM CDT encounter procedure are in GLUCOSE, BUN, Left hip pain the results CREATININE, CA) Neck pain section. EKG-12 LEAD Routine 07/06/2019 4:13 PM CDT XR HIPS 2 VW LEFT STAT 07/06/2019 4:08 Fall, initial Results for this PM CDT encounter procedure are in Left hip pain the results Neck pain section. EKG-12 LEAD Routine 07/06/2019 3:56 PM CDT documented in this encounter Results Basic Metabolic Panel (NA, K, CL, CO2, GLUCOSE, BUN, CREATININE, CA) (2018 9:56 AM CDT) NA 140 135 - 145 [facility] mmol/L [facility] K 4.3 3.5 - 5.0 [facility] mmol/L [facility] CL 106 98 - 108 mmol/L [facility] CO2 TOTAL 28 23 - 31 mmol/L [facility] AGAP 6 2 - 16 [facility] BUN 27 (H) 7 - 23 mg/dL [facility] GLUCOSE 191 (H) 70 - 110 mg/dL [facility] CREATININE 0.58 0.50 - 1.04 [facility] mg/dL [facility] CALCIUM 9.3 8.6 - 10.6 [facility] mg/dL [facility] eGFR Calculation 100.3 mL/min/1.73m2 [facility] (Non-[facility] LABORATORY [place]) eGFR Calculation 121.5 mL/min/1.73m2 [facility] () [facility] Specimen Blood - ARM, RIGHT Narrative Performed At Association of Glomerular Filtration Rate (GFR) [facility] and Staging of Kidney Disease* + + +- + | GFR (mL/min/1.73 m2)| With Kidney Damage|Without Kidney Damage + + +- + |>90| Stage one| Normal + + +- + |60-89|S tage two| Decreased GFR + + +- + |30-59|S tage three| Stage three + + +- + |15-29|S tage four | Stage four + + +- + |<15 (or dialysis)|Stage five | Stage five + + +- + *Each stage assumes the associated GFR level has been in effect for at least three months.Stages 1 to 5, with or without kidney disease, indicate chronic kidney disease. Notes: Determination of stages one and two (with eGFR >59mL/min/1.73 m2) requires estimation of kidney damage for at least three months as defined by structural or functional abnormalities of the kidney, manifested by either: Pathological abnormalities or Markers of kidney damage (including abnormalities in the composition of the blood or urine or abnormalities in imaging tests). Performing Organization Address City/State/Zipcode Phone Number [facility] CLIA: [id number], [address] [place] [address] CBC WITH DIFFERENTIAL (07/07/2019 4:50 AM CDT) WBC 5.53 4.30 - 11.10 [facility] 10*3/L [facility] RBC 4.15 3.93 - 5.25 [facility] 10*6/L [facility] HGB 13.0 11.6 - 15.0 [facility] g/dL [facility] HCT 39.8 35.7 - 45.2 % [facility] MCV 95.9 (H) 80.6 - 95.5 fL [facility] MCH 31.3 25.9 - 32.8 pg [facility] MCHC 32.7 31.6 - 35.1 [facility] g/dL [facility] RDW-SD 43.8 39.0 - 49.9 fL [facility] RDW-CV 12.4 12.0 - 15.5 % [facility] PLT 85 (L) 166 - 358 [facility] 10*3/L [facility] MPV 12.3 9.5 - 12.9 fL [facility] NRBC/100 WBC 0.0 0.0 - 10.0 /100 [facility] WBCs [facility] NRBC x10^3 <0.01 10*3/L [facility] GRAN MAT (NEUT) % 63.8 % [facility] IMM GRAN % 0.40 % [facility] LYMPH % 21.3 % [facility] MONO % 11.4 % [facility] EOS % 2.7 % [facility] BASO % 0.4 % [facility] GRAN MAT x10^3(ANC) 3.53 1.88 - 7.[address]/[facility] LABORATORY IMM GRAN x10^3 <0.03 0.00 - 0.[address] LABORATORY LYMPH x10^3 1.18 (L) 1.32 - 3.[address] LABORATORY MONO x10^3 0.63 0.33 - 0.[address] LABORATORY EOS x10^3 0.15 0.03 - 0.[address] LABORATORY [place] x10^3 <0.03 0.01 - 0.[address] LABORATORY Specimen Blood - LINE, VENOUS Performing Organization Address City/State/Zipcode Phone Number [facility] CLIA: [id number], [address] [place] [address] PELVIS WO CONTRAST (07/06/2019 8:54 PM CDT) Specimen Impressions Performed At PACS/VR/DOSE Left superior and inferior pubic rami fractures with adjacent intrapelvic hematoma. Ava Angulo MD., have reviewed this study and agree with the above report. Narrative Performed At EXAM: CT PELVIS WO CONTRAST PACS/VR/DOSE HISTORY: Pelvic fx, known or suspected COMPARISON: None available. TECHNIQUE: Helical CT scan of the pelvis was performed without intravenous contrast. Coronal, sagittal and 3-D reconstructions were then generated. FINDINGS: CT imaging of the pelvis demonstrate: BONE AND JOINT: Minimally displaced segmental fracture of the right superior pubic ramus and nondisplaced fracture of the left inferior pubic ramus are identified. SOFT TISSUES/INTRAPELVIC CONTENTS: Swelling with fluid collection is noted within the left pelvic sidewall adjacent to the pubic rami fractures and likely represents early hematoma formation. This hematoma exerts mass effect in the pelvis in the form of rightward displacement of the urinary bladder. The urinary bladder is mildly distended. Prior hysterectomy. Round mixed hyperdense/hypodense calcified lesion adjacent to the rectum may represent fat necrosis (axial image 48). Procedure Note [facility], Radiant Results Inft User - 07/07/2019 11:09 AM CDT EXAM: CT PELVIS WO CONTRAST HISTORY: Pelvic fx, known or suspected COMPARISON: None available. TECHNIQUE: Helical CT scan of the pelvis was performed without intravenous contrast. Coronal, sagittal and 3-D reconstructions were then generated. FINDINGS: CT imaging of the pelvis demonstrate: BONE AND JOINT: Minimally displaced segmental fracture of the right superior pubic ramus and nondisplaced fracture of the left inferior pubic ramus are identified. SOFT TISSUES/INTRAPELVIC CONTENTS: Swelling with fluid collection is noted within the left pelvic sidewall adjacent to the pubic rami fractures and likely represents early hematoma formation. This hematoma exerts mass effect in the pelvis in the form of rightward displacement of the urinary bladder. The urinary bladder is mildly distended. Prior hysterectomy. Round mixed hyperdense/hypodense calcified lesion adjacent to the rectum may represent fat necrosis (axial image 48). IMPRESSION Left superior and inferior pubic rami fractures with adjacent intrapelvic hematoma. IDayna MD., have reviewed this study and agree with the above report. Performing Organization Address City/State/Zipcode Phone Number PACS/VR/DOSE XR PELVIS <3 VW (07/06/2019 5:49 PM CDT) Specimen Impressions Performed At PACS/VR/DOSE Left superior and inferior pubic rami fractures. Ava Angulo MD., have reviewed this study and agree with the above report. Narrative Performed At EXAM: XR PELVIS <3 VW PACS/VR/DOSE HISTORY: pelvis and left hip pain COMPARISON: None available. FINDINGS: Radiographs of the pelvis demonstrate suspected discontinuity of the left superior pubic rami. A nondisplaced fracture of the left inferior pubic ramus is also noted. Sclerosis of the bilateral sacroiliac joints is identified. Moderate to severe lumbosacral junction spondylosis and facet arthropathy are seen. Mild soft tissue swelling is noted diffusely about the pelvis. Hernia mesh is seen. Procedure Note [facility], Radiant Results Inft User - 07/07/2019 9:02 AM CDT EXAM: XR PELVIS <3 VW HISTORY: pelvis and left hip pain COMPARISON: None available. FINDINGS: Radiographs of the pelvis demonstrate suspected discontinuity of the left superior pubic rami. A nondisplaced fracture of the left inferior pubic ramus is also noted. Sclerosis of the bilateral sacroiliac joints is identified. Moderate to severe lumbosacral junction spondylosis and facet arthropathy are seen. Mild soft tissue swelling is noted diffusely about the pelvis. Hernia mesh is seen. IMPRESSION Left superior and inferior pubic rami fractures. I, Dayna Kenney MD., have reviewed this study and agree with the above report. Performing Organization Address [facility] [place] Phone Number PACS/VR/DOSE CT CERVICAL SPINE WO CONTRAST (07/06/2019 5:16 PM CDT) Specimen Impressions Performed At PACS/VR/DOSE No acute cervical fracture or traumatic malalignment Narrative Performed At * * * * * * * * ORIGINAL REPORT * * * * * * * * PACS/VR/DOSE CT CERVICAL SPINE WO CONTRAST HISTORY: Female 79 years C-spine trauma, high clinical risk (NEXUS/CCR) COMPARISON: None TECHNIQUE: Routine CT cervical spine without contrast FINDINGS: Slight reversal of the normal cervical lordosis. The vertebral bodies are normal in height and in normal alignment. No facet fracture or subluxation is present. The craniocervical junction is intact. The prevertebral soft tissues are unremarkable. Moderate spondylosis and uncinate hypertrophy are present at C5-C6 with no more than minimal degenerative changes at the remaining cervical levels. Procedure Note [facility], Radiant Results Inft User - 07/06/2019 5:28 PM CDT * * * * * * * * ORIGINAL REPORT * * * * * * * * CT CERVICAL SPINE WO CONTRAST HISTORY: Female 79 years C-spine trauma, high clinical risk (NEXUS/CCR) COMPARISON: None TECHNIQUE: Routine CT cervical spine without contrast FINDINGS: Slight reversal of the normal cervical lordosis. The vertebral bodies are normal in height and in normal alignment. No facet fracture or subluxation is present. The craniocervical junction is intact. The prevertebral soft tissues are unremarkable. Moderate spondylosis and uncinate hypertrophy are present at C5-C6 with no more than minimal degenerative changes at the remaining cervical levels. IMPRESSION No acute cervical fracture or traumatic malalignment Performing Organization Address [facility] Phone Number PACS/VR/DOSE CBC WITH DIFFERENTIAL (07/06/2019 4:38 PM CDT) WBC 7.87 4.30 - 11.10 [facility] 10*3/L HOSPITAL LABORATORY RBC 3.92 (L) 3.93 - 5.25 [facility] 10*6/L HOSPITAL LABORATORY HGB 12.6 11.6 - 15.0 [facility] g/dL HOSPITAL LAB[facility]ATORY HCT 37.4 35.7 - 45.2 % [facility] MCV 95.4 80.6 - 95.5 fL [facility] MCH 32.1 25.9 - 32.8 pg [facility] MCHC 33.7 31.6 - 35.1 [facility] g/dL [facility] RDW-SD 42.6 39.0 - 49.9 fL [facility] RDW-CV 12.3 12.0 - 15.5 % [facility] PLT 140 (L) 166 - 358 [facility] 10*3/L HOSPITAL LABORATORY MPV 9.8 9.5 - 12.9 fL [facility] NRBC/100 WBC 0.0 0.0 - 10.0 /100 [facility] WBCs [facility] NRBC x10^3 <0.01 10*3/L [facility] GRAN MAT (NEUT) % 72.9 % [facility] IMM GRAN % 0.80 % [facility] LYMPH % 16.0 % [facility] MONO % 8.4 % [facility] EOS % 1.5 % [facility] BASO % 0.4 % [facility] GRAN MAT x10^3(ANC) 5.74 1.88 - 7.09 [facility] 10*3/uL HOSPITAL LABORATORY IMM GRAN x10^3 0.06 0.00 - 0.06 [facility] 10*3/uL HOSPITAL LAB[facility]ATORY LYMPH x10^3 1.26 (L) 1.32 - 3.29 [facility] 10*3/uL [facility]PITAL LAB[facility]ORY MONO x10^3 0.66 0.33 - 0.92 [facility] 10*3/uL HOSPITAL LAB[facility]ORY EOS x10^3 0.12 0.03 - 0.39 [facility] 10*3/uL [facility] BASO x10^3 0.03 0.01 - 0.07 [facility] 10*3/uL [facility] Specimen Blood - ARM, RIGHT Performing Organization Address City/State/Zipcode Phone Number [facility] CLIA: [id number], [address] [place] [address] BASIC METABOLIC PANEL (NA, K, CL, CO2, GLUCOSE, BUN, CREATININE, CA) (2018 4:38 PM CDT) NA 140 135 - 145 [facility] mmol/L [facility] K 4.1 3.5 - 5.0 [facility] mmol/L [facility] CL 106 98 - 108 mmol/L [facility] CO2 TOTAL 26 23 - 31 mmol/L [facility] AGAP 8 2 - 16 [facility] BUN 32 (H) 7 - 23 mg/dL [facility] GLUCOSE 109 70 - 110 mg/dL [facility] CREATININE 0.63 0.50 - 1.04 [facility] mg/dL [facility] CALCIUM 9.3 8.6 - 10.6 [facility] mg/dL [facility] eGFR Calculation 91.2 mL/min/1.73m2 [facility] (Non-) [facility] eGFR Calculation 110.5 mL/min/1.73m2 [facility] () [facility] Specimen Blood - ARM, RIGHT Narrative Performed At [facility] Glomerular Filtration Rate (GFR) [facility] and Staging of Kidney Disease* + + +- + | GFR (mL/min/1.73 m2)| With Kidney Damage|Without Kidney Damage + + +- + |>90| Stage one| Normal + + +- + |60-89|S tage two| Decreased GFR + + +- + |30-59|S tage three| Stage three + + +- + |15-29|S tage four | Stage four + + +- + |<15 (or dialysis)|Stage five | Stage five + + +- + *Each stage assumes the associated GFR level has been in effect for at least three months.Stages 1 to 5, with or without kidney disease, indicate chronic kidney disease. Notes: Determination of stages one and two (with eGFR >59mL/min/1.73 m2) requires estimation of kidney damage for at least three months as defined by structural or functional abnormalities of the kidney, manifested by either: Pathological abnormalities or Markers of kidney damage (including abnormalities in the composition of the blood or urine or abnormalities in imaging tests). Performing Organization Address City/State/Zipcode Phone Number [facility] CLIA: [id number], [address] [place] [address] XR HIPS 2 VW LEFT (07/06/2019 4:08 PM CDT) Specimen Impressions Performed At PACS/VR/DOSE No acute bony abnormality. Mild osteoarthrosis of the left hip. REPORT CHANGE: Left superior-inferior pubic rami fractures are seen, better evaluated on the subsequently performed CT pelvis. Ava Angulo MD., have reviewed this study and agree with the above report. Narrative Performed At EXAM: XR HIPS 2 VW LEFT PACS/VR/DOSE HISTORY: hip pain left, fall COMPARISON: Left hip radiograph 09/14/2018. FINDINGS: Radiographs of the left hip demonstrate no fracture or dislocation. Mild joint space narrowing, subchondral sclerosis affects the left hip. The soft tissues are unremarkable. Procedure Note [facility], Radiant Results Inft User - 07/07/2019 10:49 AM CDT EXAM: XR HIPS 2 VW LEFT HISTORY: hip pain left, fall COMPARISON: Left hip radiograph 09/14/2018. FINDINGS: Radiographs of the left hip demonstrate no fracture or dislocation. Mild joint space narrowing, subchondral sclerosis affects the left hip. The soft tissues are unremarkable. IMPRESSION No acute bony abnormality. Mild osteoarthrosis of the left hip. REPORT CHANGE: Left superior-inferior pubic rami fractures are seen, better evaluated on the subsequently performed CT pelvis. Dayna Angulo MD., have reviewed this study and agree with the above report. Performing Organization Address City/State/Zipcode Phone Number PACS/VR/DOSE documented in this encounter Visit Diagnoses Diagnosis Closed fracture of multiple pubic rami, left, initial encounter - Primary Fall, initial encounter Left hip pain Pain in joint, pelvic region and thigh Neck pain Cervicalgia documented in this encounter Administered Medications Medication Order MAR Action Action Date Dose Rate Site atorvastatin (LIPITOR) tablet 40 Given 07/07/2019 10:37 PM CDT 40 mg mg 40 mg, Oral, QHS, First dose on 07/07/19 at 2100, Until Discontinued, Routine enoxaparin (LOVENOX) injection 40 mg Given 07/08/2019 10:25 AM CDT 40 mg Abdomen-SC 40 mg, Subcutaneous, DAILY, First dose on 07/07/19 at 0900, Until Discontinued, Routine HYDROcodone-acetaminophen (NORCO) 10-325 Given 07/08/2019 4:46 PM CDT 1 tablet mg tablet 1 tablet 1 tablet, Oral, Q6HPRN, Starting 07/06/19 at 2325, Until Discontinued, Routine, Pain (scale 4-6), Pain (scale 7-10) Given 07/08/2019 8:59 AM CDT 1 tablet Given 07/07/2019 4:45 AM CDT 1 tablet ibuprofen (IBU) tablet 600 mg Given 07/08/2019 1:07 PM CDT 600 mg 600 mg, Oral, TID MEALS, First dose on 07/07/19 at 0800, Until Discontinued, Routine Given 07/08/2019 8:59 AM CDT 600 mg Given 07/07/2019 10:37 PM CDT 600 mg lidocaine (LIDODERM) 5 % (700 mg/patch) Given 07/08/2019 4:46 PM CDT 1 Patch patch 1 Patch 1 Patch, Topical, Administer over 12 Hours, DAILY, First dose on 07/08/19 at 1415, Until Discontinued, Routine metoprolol succinate XL (TOPROL XL) tablet 25 Given 07/08/2019 8:59 AM CDT 25 mg mg 25 mg, Oral, DAILY, First dose on 07/07/19 at 0900, Until Discontinued, Routine Given 07/07/2019 9:46 AM CDT 25 mg montelukast (SINGULAIR) tablet 10 mg Given 07/08/2019 8:59 AM CDT 10 mg 10 mg, Oral, DAILY, First dose on 07/07/19 at 0900, Until Discontinued, Routine Given 07/07/2019 9:46 AM CDT 10 mg morpHINE injection 2 mg Given 07/07/2019 3:29 PM CDT 2 mg 2 mg, Slow IV Push, Q4HPRN, Starting 07/06/19 at 2232, Until Discontinued, Routine, Pain (scale 7-10), Chest pain ondansetron (ZOFRAN (PF)) injection 4 mg Given 07/07/2019 7:58 PM CDT 4 mg 4 mg, Slow IV Push, Q6HPRN, Starting 07/06/19 at 2234, Until Discontinued, Routine, Nausea and Vomiting (N/V) Polyethylene Glycol 3350 (MIRALAX) powder 17 g Given 07/08/2019 8:59 AM CDT 17 g 17 g, Oral, BID, First dose on 07/07/19 at 1445, Until Discontinued, Routine Given 07/07/2019 3:27 PM CDT 17 g traMADol (ULTRAM) tablet 50 mg Given 07/07/2019 9:47 AM CDT 50 mg 50 mg, Oral, Q8HPRN, Starting 07/06/19 at 2230, Until 07/08/19 at 2229, Routine, Pain (scale 4-6) Given 07/06/2019 10:51 PM CDT 50 mg documented in this encounter Insurance Payer Benefit Plan / Subscriber ID Effective Dates Phone Address Type Group MEDICARE MEDICARE PART xxxxxxxxxxx 2005-[place]ugene [phone] [facility] Medicare A & B t 2 [id number] [address] [id number] ) [place] [address] documented as of this encounter
--- OUTSIDE RECORDS SUMMARY | 2019-11-05 09:39 | XMS REPORT | Summary of Care ---
:1940 Author Organization [facility] - [facility] Address [address] [place] [id number] Care Team Providers Name Role Phone Angella Skelton MD Primary Care Provider Reason for Visit Reason Comments Transition Of Care Encounter Details Date Type Department Care Team Description 07/09/2019 Transition of Care [facility] Georgie Velasquez, gis administrator Of Care [facility]- [address] [place] [phone] Allergies No Known Allergiesdocumented as of this encounter (statuses as of 07/09/2019) Medications Medication Sig Dispensed Refills Start Date [...] as of this encounter (statuses as of 07/09/2019) Active Problems Problem Noted Date Closed fracture [...] as of this encounter (statuses as of 07/09/2019) Resolved Problems Problem Noted Date Resolved Date OAB (overactive bladder) 01/21/2015 10/14/2015 Urinary incontinence, nocturnal enuresis 01/21/2015 10/14/2015 documented as of this encounter (statuses as of 07/09/2019) Immunizations Name Administration Dates Next Due Influenza [...] Office Visit Family Medicine Tereso Ham MD [address] [place] [address] Dr Stauffer [address] [place] [phone] 08/09/2019 Office Visit Internal Medicine Angella Skelton MD [address] [place] [address] Dr Stauffer [address] [place] [phone] 02/05/2020 Office Visit Endocrinology Diabetes & Jose Alfredo Partida MD [id number] [place], [place] [phone] 05/18/2020 Office Visit Obstetrics & Gynecology Huyen Serrano MD [address] [place] [address] DR. Stauffer [address] [place] [phone] Health Maintenance Due Date Last Done Comments [...] of this encounter Implants Implanted Type Area Velvet Cutter Device Identifier Shelf Expiration Model / Date Serial / Lot Left Shoulder Hardware documented as of this encounter Results Not on filedocumented in this encounter Insurance Payer Benefit Plan Subscriber ID Effective Phone Address Type / Group Dates MEDICARE MEDICARE PART xxxxxxxxxxx 2005-Pres [phone] Medicare A & B ent [id number] [place]ERR [id number] INDIGENT CARE [facility] [id number] 2019-10/[address] [place] [address] 02/2020 [place] [address] documented as of this encounter
[2019-11-05] MEDS ORDERED: NA CHLORIDE 0.9% 1,000 ML ONE (10:20)
--- NOTE | 2019-11-05 10:32 | RAD REPORT ---
EXAM DESCRIPTION: CT - [id number] - 11/05/2019 10:21 am CLINICAL HISTORY: Trauma, head and neck injury. PAIN COMPARISON: No comparisons TECHNIQUE: Axial 5 mm thick images of the head were obtained. Axial 2 mm thick images of the cervical spine were obtained with sagittal and coronal reconstruction images generated and reviewed. All CT scans are performed using dose optimization technique as appropriate and may include automated exposure control or mA/KV adjustment according to patient size. FINDINGS: CT HEAD WITHOUT CONTRAST: No acute hemorrhage, hydrocephalus or extra-axial collection is identified.Moderate generalized brain atrophy is present with moderate periventricular and deep white matter chronic microvascular ischemi c changes.No areas of brain edema or midline shift. The paranasal sinuses and mastoids are clear.The calvarium is intact. CT CERVICAL SPINE WITHOUT CONTRAST: No fracture or subluxation.Moderate C5-6 spondylosis.No prevertebral soft tissues swelling is identif ied. IMPRESSION: No acute intracranial or cervical spine findings.
[2019-11-05 10:40] LABS: Absolute Lymphocytes (CBC) 0.9 K/uL (0.7-4.9); Basophils % 2.3 % (0-1.3); Hematocrit 32.9 % (36.0-45.0); Lymphocytes % 25.3 % (15.3-44.8); MPV 7.3 fL (7.6-11.3); RBC Red Blood Cell Count 3.48 M/uL (3.86-4.86)
[2019-11-05 10:41] LABS: Protime INR 1.35
[2019-11-05 10:48] LABS: ALT/SGPT 29 U/L (12-78); AST/SGOT 21 U/L (15-37); Albumin 2.6 g/dL (3.4-5.0); Alkaline Phosphatase 77 U/L (45-117); BUN Blood Urea Nitrogen 13 mg/dL (7-18); Bicarbonate 32 mmol/L (21-32); Bilirubin Direct 0.2 mg/dL (0-0.2); Bilirubin Total 0.7 mg/dL (0.2-1.0); Glucose Level 178 mg/dL (74-106); Magnesium 1.8 mg/dL (1.8-2.4); NT PRO-BNP 57 pg/mL (<450); Potassium 3.8 mmol/L (3.5-5.1); Sodium Level 139 mmol/L (136-145); Troponin (Emerg Dept Use Only) < 0.02 ng/mL (0.0-0.045)
--- NOTE | 2019-11-05 11:12 | RAD REPORT ---
EXAM DESCRIPTION: RAD - Chest Single View - 11/05/2019 11:00 am CLINICAL HISTORY: COUGH Chest pain. COMPARISON: CHEST PA AND LAT 2 VIEW dated 04/10/2010; CHEST PA AND LAT 2 VIEW dated 03/15/2008; CHEST PA AND LAT 2 VIEW dated 10/24/2000 FINDINGS: Portable technique limits examination quality. The lungs are grossly clear. The heart is normal in size. No displaced fractures.Proximal left humeru s hardware. IMPRESSION: No acute intrathoracic process suspected.
--- NOTE | 2019-11-05 11:13 | RAD REPORT ---
EXAM DESCRIPTION: RAD - Pelvis - 11/05/2019 11:00 am CLINICAL HISTORY: TRAUMA Fall, left-sided hip pain COMPARISON: 04/10/2010 FINDINGS: AP pelvis, left hip and left femur - multiple projections are submitted Fractures involve the superior inferior pubic ramus on the left. The left hip joint appears intact. N o fracture of the left femur seen. Degenerative changes are present in the left knee.
--- NOTE | 2019-11-05 12:44 | ER ---
Nurse's Notes [facility] Name: Susy Bryant Age: 79 yrs Sex: Female : 1940 Arrival Date: 11/05/2019 Time: 09:36 Bed 8 Private MD: Diagnosis: Cellulitis and acute lymphangitis of other parts of limb;Cellulitis and acute lymphangitis of trunk;Weakness;Dementia in other diseases classified elsewhere;Fracture of other parts of pelvis-superior and inferior pubic ramus Presentation: 11/05 09:36 Presenting complaint: EMS states: pt became weak and fell onto left hip and hit head on aa5 floor as she was being assisted to restroom. Negative LOC. Pt c/o pain to left hip with movement. Pt is currently at [facility] being treated for CDiff. Pt takes Eliquis for PE prevention. 09:36 Onset of symptoms was November 05, 2019. Risk Assessment: Do you want to hurt yourself [facility] or someone else? Patient reports no desire to harm self or others. Initial Sepsis Screen: Does the patient meet any 2 criteria? No. Patient's initial sepsis screen is negative. Does the patient have a suspected source of infection? Yes:. Care prior to arrival: Glucose check: 230. 09:36 Method Of Arrival: EMS: [facility] aa 09:36 Acuity: ADRIEN 2 aa5 09:36 Mechanism of Injury: Fall from standing position. Trauma event details: Injury occurred aa in the [facility], Injury occurred: [facility]. 09:36 Transition of care: patient was received from another setting of care (long-term care [facility] facility), [facility]. Trauma Activation: Alert Physician: ED Physician; Name: ; Notified At: ; Arrived At: Physician: General Surgeon; Name: ; Notified At: ; Arrived At: Physician: Radiology; Name: ; Notified At: ; Arrived At: Physician: Respiratory; Name: ; Notified At: ; Arrived At: Physician: Lab; Name: ; Notified At: ; Arrived At: Historical: - Allergies: 09:36 No Known Allergies; aa5 - Home Meds: 10:00 alendronate 70 mg oral tab 1 tab once wkly [Active]; Eliquis 5 mg oral tab 1 tab 2 aa5 times per day [Active]; atorvastatin 40 mg oral tab 1 tab once daily [Active]; citalopram 10 mg tab once daily [Active]; cranberry 400 mg oral cap twice a day [Active]; Estrace 0.01 % (0.1 mg/gram) vaginal crea once time a day [Active]; diclofenac sodium topical topical every 8 hours for osteoarthritis pain [Active]; furosemide 20 mg oral tab once daily [Active]; hydrocortisone 1 % Topical crea [Active]; lactobacillus cap once a day [Active]; lisinopril 20 mg Oral tab once daily [Active]; montelukast 10 mg oral tab 1 tab once daily [Active]; Oyster Shell Calcium With D Oral [Active]; vancomycin oral 50mg/ml give 2.5ml PO 4 times a day for Cdiff oral [Active]; - PMHx: 09:36 cdiff; Hypertension; Hyperlipidemia; Heart Murmur; Depression; GERD; aa5 10:00 PE; osteoarthritis; aa5 - Immunization history:: Adult Immunizations unknown. - Social history:: Smoking status: Patient/guardian denies using tobacco. - Immunization history: Last tetanus immunization: unknown. - Ebola Screening: : No symptoms or risks identified at this time. - Family history:: not pertinent. Screenin:13 Abuse screen: Denies threats or abuse. Nutritional screening: No deficits noted. aa5 Tuberculosis screening: No symptoms or risk factors identified. Fall Risk Fall in past 12 months (25 points). IV access (20 points). Total Addison Fall Scale indicates High Risk Score (45 or more points). Fall prevention measures have been instituted. Side Rails Up X 2 Placed Close to Nursing Station. Primary Survey: 09:37 NO uncontrolled hemorrhage observed. A: The patient is alert. Breathing/Chest: aa5 Respiratory pattern: regular, Respiratory effort: spontaneous, unlabored, Chest inspection: symmetrical rise and fall of the chest. Circulation: Skin color: pink. Disability Alert. Exposure/Environment: A warming method has been applied: A warm blanket has been provided to the patient. 09:50 Reassessment Airway Airway Patent Breathing/Chest Respiratory pattern Regular aa5 Respiratory effort Spontaneous Unlabored Circulation Color [place] Disability Alert. Assessment: 09:36 Reassessment: Contact precautions initiated. . aa5 09:38 General: Appears comfortable, Behavior is calm, cooperative. Pain: Complains of pain in aa5 left hip Pain does not radiate. Pain currently is 0 out of 10 on a pain scale. Is intermittent, Aggravated by repositioning. Neuro: Level of Consciousness is awake, alert, obeys commands, Oriented to person, place, time, situation, Senior Relationship Manager are equal bilaterally Moves all extremities. Speech is normal, Facial symmetry appears normal, Pupils are PERRLA. Cardiovascular: Heart tones S1 S2 present Rhythm is regular. Respiratory: Airway is patent Respiratory effort is even, unlabored, Respiratory pattern is regular, symmetrical. GI: Abdomen is round Bowel sounds present X 4 quads. Abd is soft and non tender X 4 quads. Patient currently denies nausea, vomiting, Pt states "I haven't had diarrhea in a few days now". : brief noted. EENT: No signs and/or symptoms were reported regarding the EENT system. Derm: Skin is pink, warm \\T\\ dry. Rash noted that is itchy, red, on left bicep and left antecubital area and left lateral aspect of chest. Musculoskeletal: Reports pain in left hip. 10:10 Reassessment: Patient is alert, oriented x 3, equal unlabored respirations, skin aa5 warm/dry/pink. 10:10 Reassessment: Pt's daughter at bedside . aa5 11:15 Reassessment: Patient is alert, oriented x 3, equal unlabored respirations, skin aa5 warm/dry/pink. Pt back from radiology . 12:00 Reassessment: Patient is alert, oriented x 3, equal unlabored respirations, skin aa5 warm/dry/pink. Patient denies pain at this time. 14:00 Reassessment: Patient is alert, oriented x 3, equal unlabored respirations, skin aa5 warm/dry/pink. Pt's daughter remains at bedside. Awaiting room assignment, notified of wait time. . 15:00 Reassessment: Patient is alert, oriented x 3, equal unlabored respirations, skin aa5 warm/dry/pink. Awaiting transportation to room 207, pt and daughter notified of wait time. . Vital Signs: 09:37 BP 118 / 56; Pulse 81; Resp 18 S; Temp 98.5(O); Pulse Ox 94% on R/A; Pain 0/10; aa5 10:10 BP 110 / 53; Pulse 72; Resp 16 S; Pulse Ox 95% on R/A; aa5 11:19 BP 111 / 59; Pulse 67; Resp 16 S; Pulse Ox 94% on R/A; Pain 0/10; aa5 12:00 BP 114 / 50; Pulse 67; Resp 16 S; Pulse Ox 94% on R/A; aa5 13:00 BP 122 / 61; Pulse 69; Resp 16 S; Temp 98.0(TE); Pulse Ox 95% on R/A; aa5 14:00 BP 123 / 63; Pulse 72; Resp 18 S; Pulse Ox 96% on R/A; aa5 15:00 BP 129 / 52; Pulse 72; Resp 18 S; Pulse Ox 94% on R/A; aa5 Maikel Coma Score: 09:37 Eye Response: spontaneous(4). Verbal Response: oriented(5). Motor Response: obeys aa5 commands(6). Total: 15. 10:10 Eye Response: spontaneous(4). Verbal Response: oriented(5). Motor Response: obeys aa5 commands(6). Total: 15. 11:19 Eye Response: spontaneous(4). Verbal Response: oriented(5). Motor Response: obeys aa5 commands(6). Total: 15. 12:00 Eye Response: spontaneous(4). Verbal Response: oriented(5). Motor Response: obeys aa5 commands(6). Total: 15. Trauma Score (Adult): 09:37 Eye Response: spontaneous(1); Verbal Response: oriented(1); Motor Response: obeys aa5 commands(2); Systolic BP: > 89 mm Hg(4); Respiratory Rate: 10 to 29 per min(4); Maikel Score: 15; Trauma Score: 12 10:10 Eye Response: spontaneous(1); Verbal Response: oriented(1); Motor Response: obeys aa5 commands(2); Systolic BP: > 89 mm Hg(4); Respiratory Rate: 10 to 29 per min(4); Maikel Score: 15; Trauma Score: 12 11:19 Eye Response: spontaneous(1); Verbal Response: oriented(1); Motor Response: obeys aa5 commands(2); Systolic BP: > 89 mm Hg(4); Respiratory Rate: 10 to 29 per min(4); Maikel Score: 15; Trauma Score: 12 12:00 Eye Response: spontaneous(1); Verbal Response: oriented(1); Motor Response: obeys aa5 commands(2); Systolic BP: > 89 mm Hg(4); Respiratory Rate: 10 to 29 per min(4); Maikel Score: 15; Trauma Score: 12 13:00 Eye Response: spontaneous(1); Verbal Response: oriented(1); Motor Response: obeys aa5 commands(2); Systolic BP: > 89 mm Hg(4); Respiratory Rate: 10 to 29 per min(4); Maikel Score: 15; Trauma Score: 12 14:00 Eye Response: spontaneous(1); Verbal Response: oriented(1); Motor Response: obeys aa5 commands(2); Systolic BP: > 89 mm Hg(4); Respiratory Rate: 10 to 29 per min(4); Maikel Score: 15; Trauma Score: 12 15:00 Eye Response: spontaneous(1); Verbal Response: oriented(1); Motor Response: obeys aa5 commands(2); Systolic BP: > 89 mm Hg(4); Respiratory Rate: 10 to 29 per min(4); Mcbee Score: 15; Trauma Score: 12 ED Course: 09:36 Patient arrived in ED. aa5 09:36 Antoinette Hopkins, RN is Primary Nurse. aa5 09:36 Arm band placed on Patient placed in an exam room, on a stretcher. aa5 09:36 Patient has correct armband on for positive identification. Placed in gown. Bed in low aa5 position. Call light in reach. Side rails up X2. phototypesetting equipment monitor on. Pulse ox on. NIBP on. 09:37 Kwaku Serrano MD is Attending Physician. [facility] 09:40 Thermoregulation: warm blanket given to patient. aa5 09:43 EKG done, by aviation maintenance technician. reviewed by Kwaku Serrano MD. at1 09:49 Triage completed. aa5 10:10 Patient maintains SpO2 saturation greater than 95% on room air. aa5 10:13 Initial lab(s) drawn, by dc, sent to lab. Inserted saline lock: 20 gauge in right aa5 wrist, using aseptic technique. Blood collected. 10:[address] via stretcher. aa5 10:22 CT Head C Spine In Process Unspecified. EDMS 11:01 XRAY Chest (1 view) In Process Unspecified. EDMS 11:01 Pelvis XRAY In Process Unspecified. EDMS 11:01 Hip Left 2 View XRAY In Process Unspecified. EDMS 11:01 Femur Left XRAY In Process Unspecified. EDMS 11:20 Straight cath inserted, using sterile technique, 16 Fr. Specimen obtained. Returned aa5 clear yellow urine. Patient tolerated well. 11:20 Urine culture sent to lab. aa5 12:42 Gin Beaver MD is Hospitalizing Provider. amy 12:57 CT Pelvis wo Cont In Process Unspecified. EDMS 14:00 First set of blood cultures drawn by me from R [facility]. Second set of blood cultures drawn aa5 from L AC. 15:00 No provider procedures requiring assistance completed. Patient admitted, IV remains in aa5 place. Administered Medications: 11:15 Drug: NS 0.9% 1000 ml Route: IV; Rate: 125 ml/hr; Site: right wrist; aa5 14:10 Drug: Ancef 1 grams {Note: administered slow IVP per pharmacy at this time .} Route: aa5 IVPB; Site: right wrist; Output: 09:40 Urine: 300ml (Voided); Total: 300ml. aa5 Outcome: 12:44 Decision to Hospitalize by Provider. [facility] 12:44 Patient's length of stay in the Emergency Department was greater than 2 hours. Awaiting aa5 radiology results. Pt was in CT and radiology for approximately 1 hour. Patient's length of stay extended due to 15:00 Admitted to Med/surg accompanied by tech, via stretcher, with chart, Report called to aaMaggie Kirkland RN 15:00 Condition: stable 15:00 Discharge instructions given to patient, family, Instructed on the need for admit, Demonstrated understanding of instructions. 15:11 Patient left the ED. [email or web address] Signatures: Dispatcher [employer] EDKwaku Cardona MD MD cha Calderon, Audri, RN RN aa5 Ying Mathis, as400 administrator EKG [place]1 Angy Flanagan RN RN jl7 Corrections: (The following items were deleted from the chart) 10:01 09:36 Presenting complaint: EMS states: pt became weak and fell onto left hip and hit aa5 head on floor as she was being assisted to restroom. Negative LOC. Pt c/o pain to left hip with movement. Pt is currently at [facility] being treated for CDiff aa5 10: 09:36 Acuity: ADRIEN 3 aa5 aa5 10:02 09:36 Transition of care: patient was not received from another setting of care. aa5 aa5 11:32 09:38 Derm: Skin is pink, warm \\T\\ dry. aa5 aa5
--- NOTE | 2019-11-05 12:44 | EDPHYS ---
Physician Documentation [facility] Name: Susy Bryant Age: 79 yrs Sex: Female : 1940 Arrival Date: 11/05/2019 Time: 09:36 Bed 8 Private MD: ED Physician Kwaku Serrano HPI: 11/05 11:11 This 79 yrs old Female presents to ER via EMS with complaints of Fall Injury. amy 11:11 Details of fall: The patient fell from an upright position, while walking. Onset: The amy symptoms/episode began/occurred just prior to arrival. Associated injuries: The patient sustained injury to the head, neck injury, pelvis. Severity of symptoms: At their worst the symptoms were mild, moderate, in the emergency department the symptoms are unchanged. The patient has not experienced similar symptoms in the past. Historical: - Allergies: :36 No Known Allergies; aa5 - Home Meds: 10:00 alendronate 70 mg oral tab 1 tab once wkly [Active]; Eliquis 5 mg oral tab 1 tab 2 aa5 times per day [Active]; atorvastatin 40 mg oral tab 1 tab once daily [Active]; citalopram 10 mg tab once daily [Active]; cranberry 400 mg oral cap twice a day [Active]; Estrace 0.01 % (0.1 mg/gram) vaginal crea once time a day [Active]; diclofenac sodium topical topical every 8 hours for osteoarthritis pain [Active]; furosemide 20 mg oral tab once daily [Active]; hydrocortisone 1 % Topical crea [Active]; lactobacillus cap once a day [Active]; lisinopril 20 mg Oral tab once daily [Active]; montelukast 10 mg oral tab 1 tab once daily [Active]; Oyster Shell Calcium With D Oral [Active]; vancomycin oral 50mg/ml give 2.5ml PO 4 times a day for Cdiff oral [Active]; - PMHx: 09:36 cdiff; Hypertension; Hyperlipidemia; Heart Murmur; Depression; GERD; aa5 10:00 PE; osteoarthritis; aa5 - Immunization history:: Adult Immunizations unknown. - Social history:: Smoking status: Patient/guardian denies using tobacco. - Immunization history: Last tetanus immunization: unknown. - Ebola Screening: : No symptoms or risks identified at this time. - Family history:: not pertinent. ROS: 11:13 Constitutional: Negative for fever, chills, and weight loss, Eyes: Negative for injury, amy pain, redness, and discharge, ENT: Negative for injury, pain, and discharge, Neck: Negative for injury, pain, and swelling, Cardiovascular: Negative for chest pain, palpitations, and edema, Respiratory: Negative for shortness of breath, cough, wheezing, and pleuritic chest pain, Abdomen/GI: Negative for abdominal pain, nausea, vomiting, diarrhea, and constipation, Back: Negative for injury and pain, : Negative for injury, bleeding, discharge, and swelling, Skin: Negative for injury, rash, and discoloration, Neuro: Negative for headache, weakness, numbness, tingling, and seizure, Psych: Negative for depression, anxiety, suicide ideation, homicidal ideation, and hallucinations, Allergy/Immunology: Negative for hives, rash, and allergies, Endocrine: Negative for neck swelling, polydipsia, polyuria, polyphagia, and marked weight changes, Hematologic/Lymphatic: Negative for swollen nodes, abnormal bleeding, and unusual bruising. 11:13 MS/extremity: Positive for decreased range of motion, pain, tenderness, of the groin, left femoral area, left inguinal area and left hip. Exam: 11:13 Constitutional: This is a well developed, well nourished patient who is awake, alert, amy and in no acute distress. Head/Face: Normocephalic, atraumatic. Eyes: Pupils equal round and reactive to light, extra-ocular motions intact. Lids and lashes normal. Conjunctiva and sclera are non-icteric and not injected. Cornea within normal limits. Periorbital areas with no swelling, redness, or edema. ENT: Nares patent. No nasal discharge, no septal abnormalities noted. Tympanic membranes are normal and external auditory canals are clear. Oropharynx with no redness, swelling, or masses, exudates, or evidence of obstruction, uvula midline. Mucous membranes moist. Neck: Trachea midline, no thyromegaly or masses palpated, and no cervical lymphadenopathy. Supple, full range of motion without nuchal rigidity, or vertebral point tenderness. No Meningismus. Chest/axilla: Normal chest wall appearance and motion. Nontender with no deformity. No lesions are appreciated. Cardiovascular: Regular rate and rhythm with a normal S1 and S2. No gallops, murmurs, or rubs. Normal PMI, no JVD. No pulse deficits. Respiratory: Lungs have equal breath sounds bilaterally, clear to auscultation and percussion. No rales, rhonchi or wheezes noted. No increased work of breathing, no retractions or nasal flaring. Abdomen/GI: Soft, non-tender, with normal bowel sounds. No distension or tympany. No guarding or rebound. No evidence of tenderness throughout. Back: No spinal tenderness. No costovertebral tenderness. Full range of motion. Skin: Warm, dry with normal turgor. Normal color with no rashes, no lesions, and no evidence of cellulitis. Neuro: Awake and alert, GCS 15, oriented to person, place, time, and situation. Cranial nerves II-XII grossly intact. Motor strength 5/5 in all extremities. Sensory grossly intact. Cerebellar exam normal. Normal gait. Psych: Awake, alert, with orientation to person, place and time. Behavior, mood, and affect are within normal limits. 11:13 Musculoskeletal/extremity: Extremities: decreased ROM, pain, ROM: limited active range of motion due to pain, limited passive range of motion due to pain, Circulation is intact in all extremities. Sensation intact. DVT Exam: no swelling, negative Homans' sign noted on exam, no appreciated bluish discoloration, no erythema, no increased warmth, pain, tenderness. Vital Signs: 09:37 BP 118 / 56; Pulse 81; Resp 18 S; Temp 98.5(O); Pulse Ox 94% on R/A; Pain 0/10; aa5 10:10 BP 110 / 53; Pulse 72; Resp 16 S; Pulse Ox 95% on R/A; aa5 11:19 BP 111 / 59; Pulse 67; Resp 16 S; Pulse Ox 94% on R/A; Pain 0/10; aa5 12:00 BP 114 / 50; Pulse 67; Resp 16 S; Pulse Ox 94% on R/A; aa5 13:00 BP 122 / 61; Pulse 69; Resp 16 S; Temp 98.0(TE); Pulse Ox 95% on R/A; aa5 14:00 BP 123 / 63; Pulse 72; Resp 18 S; Pulse Ox 96% on R/A; aa5 15:00 BP 129 / 52; Pulse 72; Resp 18 S; Pulse Ox 94% on R/A; aa5 Maikel Coma Score: 09:37 Eye Response: spontaneous(4). Verbal Response: oriented(5). Motor Response: obeys aa5 commands(6). Total: 15. 10:10 Eye Response: spontaneous(4). Verbal Response: oriented(5). Motor Response: obeys aa5 commands(6). Total: 15. 11:19 Eye Response: spontaneous(4). Verbal Response: oriented(5). Motor Response: obeys aa5 commands(6). Total: 15. 12:00 Eye Response: spontaneous(4). Verbal Response: oriented(5). Motor Response: obeys aa5 commands(6). Total: 15. Trauma Score (Adult): 09:37 Eye Response: spontaneous(1); Verbal Response: oriented(1); Motor Response: obeys aa5 commands(2); Systolic BP: > 89 mm Hg(4); Respiratory Rate: 10 to 29 per min(4); Maikel Score: 15; Trauma Score: 12 10:10 Eye Response: spontaneous(1); Verbal Response: oriented(1); Motor Response: obeys aa5 commands(2); Systolic BP: > 89 mm Hg(4); Respiratory Rate: 10 to 29 per min(4); Maikel Score: 15; Trauma Score: 12 11:19 Eye Response: spontaneous(1); Verbal Response: oriented(1); Motor Response: obeys aa5 commands(2); Systolic BP: > 89 mm Hg(4); Respiratory Rate: 10 to 29 per min(4); [place] Score: 15; Trauma Score: 12 12:00 Eye Response: spontaneous(1); Verbal Response: oriented(1); Motor Response: obeys aa5 commands(2); Systolic BP: > 89 mm Hg(4); Respiratory Rate: 10 to 29 per min(4); Maikel Score: 15; Trauma Score: 12 13:00 Eye Response: spontaneous(1); Verbal Response: oriented(1); Motor Response: obeys aa5 commands(2); Systolic BP: > 89 mm Hg(4); Respiratory Rate: 10 to 29 per min(4); Maikel Score: 15; Trauma Score: 12 14:00 Eye Response: spontaneous(1); Verbal Response: oriented(1); Motor Response: obeys aa5 commands(2); Systolic BP: > 89 mm Hg(4); Respiratory Rate: 10 to 29 per min(4); Maikel Score: 15; Trauma Score: 12 15:00 Eye Response: spontaneous(1); Verbal Response: oriented(1); Motor Response: obeys aa5 commands(2); Systolic BP: > 89 mm Hg(4); Respiratory Rate: 10 to 29 per min(4); Maikel Score: 15; Trauma Score: 12 MDM: 09:37 Patient medically screened. [facility] 11:15 Data reviewed: vital signs, nurses notes, EMS record, lab test result(s), EKG, [facility] radiologic studies, plain films. 11/05 09:56 Order name: Basic Metabolic Panel; Complete Time: 11:17 [facility] 11/05 09:56 Order name: CBC with Diff; Complete Time: 11:17 [facility] 11/05 09:56 Order name: LFT's; Complete Time: 11:17 [facility] 11/05 09:56 Order name: Magnesium; Complete Time: 11:17 [facility] 11/05 09:56 Order name: NT PRO-BNP; Complete Time: 11:17 [facility] 11/05 09:56 Order name: PT-INR; Complete Time: 11:17 [facility] 11/05 09:56 Order name: Troponin (emerg Dept Use Only); Complete Time: 11:17 [facility] 11/05 09:56 Order name: XRAY Chest (1 view); Complete Time: 11:17 [facility] 11/05 09:56 Order name: Type And Screen; Complete Time: 11:17 [facility] 11/05 09:56 Order name: Pelvis XRAY; Complete Time: 11:17 [facility] 11/05 09:56 Order name: Hip Left 2 View XRAY 11/05 09:56 Order name: Urine Culture 11/05 10:51 Order name: ABO/RH no charge; Complete Time: 11:17 EDMS 11/05 12:41 Order name: Blood Culture Adult (2) amy 11/05 09:56 Order name: EKG; Complete Time: 09:57 [facility] 11/05 09:56 Order name: Cardiac monitoring; Complete Time: 10:01 [facility] 11/05 09:56 Order name: EKG - Nurse/Tech; Complete Time: 10:01 [facility] 11/05 09:56 Order name: IV Saline Lock; Complete Time: 10:16 [facility] 11/05 09:56 Order name: Labs collected and sent; Complete Time: 10:16 [facility] 11/05 09:56 Order name: O2 Per Protocol; Complete Time: 10:01 [facility] 11/05 09:56 Order name: O2 Sat Monitoring; Complete Time: 10:01 [facility] 11/05 09:56 Order name: Urine Dipstick-Ancillary (obtain specimen); Complete Time: 11:29 [facility] 11/05 09:56 Order name: Femur Left XRAY [facility] 11/05 09:56 Order name: CT Head C Spine; Complete Time: 11:17 [facility] 11/05 11:29 Order name: Straight Cath - Urine: VO received at 1015; Complete Time: 11:29 [facility] 11/05 12:41 Order name: CT Pelvis wo Cont [facility] Administered Medications: 11:15 Drug: NS 0.9% 1000 ml Route: IV; Rate: 125 ml/hr; Site: right wrist; aa5 14:10 Drug: Ancef 1 grams {Note: administered slow IVP per pharmacy at this time .} Route: aa5 IVPB; Site: right wrist; Disposition: 11/05/19 12:44 Hospitalization ordered by Gin Beaver for Inpatient Admission. Preliminary diagnosis are Cellulitis and acute lymphangitis of other parts of limb, Cellulitis and acute lymphangitis of trunk, Weakness, Dementia in other diseases classified elsewhere, Fracture of other parts of pelvis - superior and inferior pubic ramus. - Bed requested for Telemetry/MedSurg (Inpatient). - Status is Inpatient Admission. jl7 - Condition is Fair. - Problem is new. - Symptoms have improved. UTI on Admission? No Signatures: Dispatcher [employer] EDMS Vannesa Pappas Corey, MD MD cha Therrien, Shelly, MONUMENT LETTERER-C MONUMENT LETTERER-Csnw Antoinette Hopkins, RN RN aa5 Angy Flanagan RN RN jl7 Corrections: (The following items were deleted from the chart) 13:49 12:44 Hospitalization Ordered by Gin Beaver MD for Inpatient Admission. Preliminary bd diagnosis is Cellulitis and acute lymphangitis of other parts of limb; Cellulitis and acute lymphangitis of trunk; Weakness; Dementia in other diseases classified elsewhere; Fracture of other parts of pelvis - superior and inferior pubic ramus. Bed requested for Telemetry/MedSurg (Inpatient). Status is Inpatient Admission. Condition is Fair. Problem is new. Symptoms have improved. UTI on Admission? No. [facility] 15:11 13:49 11/05/2019 12:44 Hospitalization Ordered by Gin Beaver MD for Inpatient Admission. jl7 Preliminary diagnosis is Cellulitis and acute lymphangitis of other parts of limb; Cellulitis and acute lymphangitis of trunk; Weakness; Dementia in other diseases classified elsewhere; Fracture of other parts of pelvis - superior and inferior pubic ramus. Bed requested for Telemetry/MedSurg (Inpatient). Status is Inpatient Admission. Condition is Fair. Problem is new. Symptoms have improved. UTI on Admission? No.
--- NOTE | 2019-11-05 13:11 | RAD REPORT ---
EXAM DESCRIPTION: RAD - Hip Left 2 View - 11/05/2019 11:00 am CLINICAL HISTORY: TRAUMA Fall, left-sided hip pain COMPARISON: 04/10/2010 FINDINGS: AP pelvis, left hip and left femur - multiple projections are submitted Fractures involve the superior inferior pubic ramus on the left. The left hip joint appears intact. N o fracture of the left femur seen. Degenerative changes are present in the left knee.
--- NOTE | 2019-11-05 13:11 | RAD REPORT ---
EXAM DESCRIPTION: RAD - Femur Left - 11/05/2019 11:00 am CLINICAL HISTORY: TRAUMA Fall, left-sided hip pain COMPARISON: 04/10/2010 FINDINGS: AP pelvis, left hip and left femur - multiple projections are submitted Fractures involve the superior inferior pubic ramus on the left. The left hip joint appears intact. N o fracture of the left femur seen. Degenerative changes are present in the left knee.
--- NOTE | 2019-11-05 13:31 | RAD REPORT ---
EXAM DESCRIPTION: CT - Pelvis Wo Cont - 11/05/2019 12:56 pm CLINICAL HISTORY: PAIN, hip pain, fracture findings on plain film COMPARISON: PELVIS W O CONTRAST dated 04/10/2010; Femur Left dated 11/05/2019; Hip Left 2 View dated ; HIP UNILATERAL AP LAT dated 04/10/2010 TECHNIQUE: Axial 2 millimeter thick images of the pelvis were obtained. Sagittal and coronal reforma tted images were generated and reviewed. The CT scan was performed using dose optimization techniques as appropriate to a performed exam incl uding one or more of the following: Automated exposure control, adjustment of the mA and/or kV accord ing to patient size (this includes techniques or standardized protocols for targeted exams where dose is matched to indication/reason for exam) and use of iterative reconstruction technique. FINDINGS: No fracture of the proximal left femur. Trabecular pattern is normal. Minimal degenerative change seen along the greater trochanter. No acute right femur finding. There is no dislocation or p eriosteal reaction. No AVN or focal femoral head abnormality. Patient has moderate severity bilateral SI joint degenerative change. Patient has very advanced degen erative change at the L5-S1 facet joints. Right hemipelvis is intact. Patient has comminuted fracture of the superior pubic ramus. Multiple small bone fragments are presen t. Patient has an additional fracture at the superior ramus junction with the pubic symphysis. Commin uted fracture of the inferior pubic ramus present. There is soft tissue associated with the superior pubic ramus fracture proximally 18 mm in size. No callus formation seen at any of the fracture sites. Appearance of the fracture fragments raises the possibility of a subacute nature to these fractures. IMPRESSION: No fracture or acute proximal femur finding. No abnormality at either hip joint. Comminuted inferior pubic ramus fracture and comminuted superior pubic ramus fracture, both showing c haracteristics that may indicate subacute rather than acute age. There is a small amount of soft tissue component with the superior pubic ramus fracture. Give subacut e this could be hemorrhagic and reactive soft tissues. Possibility of pathologic fracture cannot be e xcluded. The fracture locations are very typical for fall related fracture. Correlation can be made with any relevant history.
[2019-11-05] MEDS ORDERED: CEFAZOLIN/SWI 1gm 1 GM/10 ML SYR ONE (13:39)
[2019-11-05] MEDS ORDERED: HYDRALAZINE HCL 20 MG/ML VIAL IV PRN (13:41)
[2019-11-05] MEDS ORDERED: ZOLPIDEM TARTRATE 5 MG TABLET PO PRN (15:35)
[2019-11-05] MEDS ORDERED: ONDANSETRON 4 MG/2 ML VIAL IV PRN (15:35)
[2019-11-05 16:12] VITALS: BMI 28.8
[2019-11-05] MEDS: ENOXAPARIN 40 MG/0.4 ML SQ SCH (16:54)
[2019-11-05] MEDS: CLINDAMYCIN INJ 600 MG in NA CHLORIDE 0.9% 50 ML IV SCH (16:55)
--- NOTE | 2019-11-05 20:56 | EKG ---
Test Date: 2019-11-05 Test Time: 09:38:18 Student Finance Specialist: TIA MEASUREMENT RESULTS: Intervals: Rate: 78 NV: 152 QRSD: 68 QT: 378 QTc: 430 [place]: P: 39 NV: 152 QRS: -1 T: 17 INTERPRETIVE STATEMENTS: Normal sinus rhythm Cannot rule out Anterior infarct, age undetermined Abnormal ECG Compared to ECG 04/10/2010 09:58:48 Myocardial infarct finding now present Electronically Signed On 11-05-19 20:54:54 [employer] by Edis Lyle
--- NOTE | 2019-11-06 00:14 | HP ---
Date of Admission: 11/05/2019 Chief Complaint: Fall. History Of Present Illness: This patient is a 79-year-old female who presents for fall at the detention. This patient has a history of hypertension, pulmonary embolism, C diff colitis, pelvis fracture, and general weakness. The patient fell in last June and she was found to have a pelvic fracture. She was admitted to the [facility] and discharged to a skilled facility for physical therapy. She developed C diff colitis last September and treated with oral antibiotics. Details regarding to the oral antibiotics are unknown. This patient has been feeling weak for the last few days. She fell this morning when trying to stand up. She complained of some back pain. She did not loss consciousness. No seizure reported. No fever or chills. This patient complained of some redness on left arm and left chest. The skin is mildly painful with some itching. No fever or chills. She does not have any diarrhea. She has been taking oral antibiotics for C diff colitis. The patient was then brought to the emergency room. In the ED, her vitals were stable. Pelvic x-ray was ordered, which demonstrates a pelvic fracture. However, did not know if this fracture is old or new. I discussed the case with ED physician and I admitted patient for observation. Past Medical History: 1. Hypertension. 2. C diff colitis. 3. Pulmonary embolism. 4. Generalized weakness. Allergies: NO KNOWN ALLERGIES. Medications: Reviewed. Please see medication list. Social History: The patient is from a snf home. No alcohol or smoking. Family History: Noncontributory. Review of Systems: No headaches or dizziness. No syncope or fall. No vision or hearing change. No nasal congestion or sore throat. No cough or shortness of breath. No chest pain. No nausea or vomiting. No abdominal pain or diarrhea. No dysuria or hematuria. No numbness or tingling. No fever or chills. For the rest of the ROS, please see HPI. Physical Examination: General: The patient awake and alert. No acute distress. HEENT: Normocephalic, atraumatic. PERRLA. EOMI. Neck: Supple. No JVD. Chest: Clear to auscultation. No respiratory distress or labored breathing. No wheezing. Heart: Normal S1, S2. Regular rhythm and rate. No murmur. Abdomen: Soft, nontender. Bowel sounds present. Extremities: No edema. There is redness on the medial side of left arm, is warm to touch. There is some redness on the left chest wall too. Neuro: Patient is awake, alert, and oriented x3, nonfocal. Psych: Mood stable. No agitation. No anxiety. Laboratory Data: WBC 7.5, hemoglobin 11.2, platelets 211, neutrophil percentage 55%. Sodium 139, potassium 3.8, creatinine 0.79, BUN 14, glucose 178. Imaging Study: Pelvic CT, no fracture or acute proximal fracture finding. No abnormality at either hip joint. There is comminuted inferior pubic ramus fracture and comminuted superior pubic ramus fracture, which is subacute. Head and cervical spine CT, there is no acute hemorrhage or other acute events in brain. No acute cervical spine findings. Assessment And Plan: 1. Fall. This is likely due to generalized weakness. We started her on physical therapy. Imaging demonstrated pelvic fracture, which is likely from previous fall. Request the nurse to get the previous record from [facility] at [place]. 2. Left arm cellulitis. The patient experienced erythema and pain on the left arm. It is warm to touch. I started IV clindamycin for possible cellulitis. Plan to stop IV antibiotics as soon as possible as she has a history of C diff colitis. 3. Generalized weakness. This is likely due to multiple conditions including cellulitis and colitis. PT was ordered. The patient needs to go back to SNF for physical therapy. 4. Pulmonary embolism. We will resume patient's home anticoagulation. 5. History of C diff colitis. Family reported that the patient has been on oral antibiotics. We will resume it. 6. Hypertension. Blood pressure is stable at this moment. We will resume home BP medications. 7. Pelvis fracture. CT suggested subacute pelvic fracture. This is likely from the previous fall. Orthopedics was consulted. Overall patient is stable. She probably can be discharged in 1 or 2 days if she continues to be improving. QT/MODL Voice ID: [id number] THONY
[2019-11-06] MEDS: CLINDAMYCIN INJ 600 MG in NA CHLORIDE 0.9% 50 ML IV SCH ×3 (00:44→16:31)
[2019-11-06] MEDS: ACETAMINOPHEN 500 MG TAB PO PRN (04:40)
[2019-11-06 05:54] LABS: Absolute Lymphocytes (CBC) 1.2 K/uL (0.7-4.9); Hematocrit 30.5 % (36.0-45.0); MPV 7.3 fL (7.6-11.3); RBC Red Blood Cell Count 3.26 M/uL (3.86-4.86)
[2019-11-06 06:16] LABS: Albumin 2.5 g/dL (3.4-5.0); Bilirubin Total 0.8 mg/dL (0.2-1.0); Magnesium 1.9 mg/dL (1.8-2.4); Phosphorus 3.1 mg/dL (2.5-4.9); Potassium 4.3 mmol/L (3.5-5.1); Protein, Total 5.7 g/dL (6.4-8.2)
[2019-11-06] MEDS: VANCOMYCIN ORAL SOLN 250 MG/5 ML OSYR PO SCH ×4 (09:29→22:04)
[2019-11-06] MEDS: ENOXAPARIN 40 MG/0.4 ML SQ SCH (09:31)
--- NOTE | 2019-11-06 11:31 | P.PN ---
Subjective Date of Service: 11/06/19 Primary Care Provider: Dr. Morales-GA(SNF) Chief Complaint: Left upper extremity redness Subjective: Other (Patient stable this time. No significant complaints noted patient had been at [facility] for pelvic fracture in June of 2019. Patient recently positive for C diff colitis. Area to the left upper extremity improved. Less erythema. Less warmth noted.) Physical Examination - Vital Signs Temperature: 97.9 F Blood Pressure: 145/65 Pulse: 63 Respirations: 18 Pulse Ox (%): 95 - Physical Exam General: Alert, In no apparent distress, Cooperative HEENT: Atraumatic Neck: Supple Respiratory: Clear to auscultation bilaterally, Normal air movement Cardiovascular: Normal pulses, Regular rate/rhythm Gastrointestinal: Normal bowel sounds Musculoskeletal: Other (Erythema to the left upper extremity improved. Less warmth noted.) Neurological: Normal speech, Normal strength at 5/5 x4 extr, Other (Patient with history of pelvic fracture.) - Studies Medications List Reviewed: Yes Assessment & Plan Discharge Plan: [facility] ((SNF)) Plan to discharge in: 24 Hours Physician Review Additional Text: Impression: Fall with recent weakness Left arm cellulitis Subacute comminuted inferior pubic ramus fracture and comminuted superior pubic ramus fracture Hypertension Hyperlipidemia Depression with anxiety History of C diff colitis currently on antibiotic therapy History of pulmonary embolism currently on chronic anti coagulation therapy Plan: Fall with recent weakness: Will have physical therapy and occupational therapy evaluate patient. Patient with history of pelvic fracture. This was from a previous fall. CT confirms subacute fracture. Anticipate improvement with physical therapy and occupational therapy. Patient will need to return back to the nursing facility with continued skilled placement. Will discuss with family. Case discussed with social media specialist to help arrange for return back to this skilled facility likely as early as tomorrow with improvement of cellulitis. Left arm cellulitis: Continue antibiotic therapy. Likely this can be transition to oral medication tomorrow. Subacute comminuted inferior pubic ramus fracture and comminuted superior pubic ramus fracture: Continue as above. Physical therapy and occupational therapy consulted. Hypertension: Continue medication. Hyperlipidemia: Continue with medication. Depression with anxiety: Continue with medication. History of C diff colitis currently on antibiotic therapy: Continue with oral vancomycin. History of pulmonary embolism currently on chronic anti coagulation therapy: Continue with medication. Time Spent Managing Pts Care (In Minutes): 55
[2019-11-06] MEDS ORDERED: DICLOFENAC SODIUM TD PRN (11:36)
[2019-11-06] MEDS: FLUOXETINE 10 MG CAP PO SCH (17:38)
[2019-11-06] MEDS: AMOX/K CLAV 500 MG TAB PO SCH (22:04)
[2019-11-06] MEDS: LACTOBACILLUS/ACIDOPHILUS TAB PO SCH (22:04)
[2019-11-06] MEDS: ATORVASTATIN 40 MG TAB PO SCH (22:04)
[2019-11-06] MEDS: APIXABAN 5 MG TABLET PO SCH (22:04)
[2019-11-06] MEDS: CRANBERRY FRUIT EXTRACT 200 MG CAP PO SCH (22:04)
[2019-11-06] MEDS: CALCIUM CARB 500MG/VIT D 200 IU TAB PO SCH (22:05)
[2019-11-06] MEDS: HYDROCORTISONE 1 % CREAM 30GM TOP SCH (22:05)
--- NOTE | 2019-11-07 00:11 | CON ---
Date of Consultation: 11/06/2019 Reason For Consultation: Pelvic fracture. History Of Present Illness: Susy is a 79-year-old female who was brought to the ER after sustaining a fall. X-rays in the emergency room demonstrated a pelvic fracture, which appeared to be subacute i n nature. The patient does have a history of a fall in June of this past year with noted pelvic fracture. She denies any pain at this time. Review of Systems: As above, otherwise negative. Past Medical History: Includes hypertension, history of pulmonary embolism and C diff colitis. Medications: Per medication reconciliation. Physical Examination: General: No apparent distress. HEENT: Normocephalic, atraumatic. Neck: Supple. Cardiovascular: Brisk capillary refill to all digits. Chest: Nonlabored breathing. Abdomen: Nondistended. Psychiatric: Responsive to exam. Musculoskeletal: Bilateral upper extremities functional range of motion without pain. No gross defo rmities. No obvious dislocations. Right lower extremity functional range of motion without pain. N o gross deformities. No obvious dislocations. Left lower extremity functional range of motion witho ut pain. No gross deformities. No obvious dislocations. No pain with flexion, internal rotation or abduction of the left hip. X-rays: X-rays of the pelvis and CT scan of the pelvis demonstrate a subacute left superior and infe rior pubic rami fractures with some callus noted. Assessment: Ms. Bryant is a 79-year-old female with a subacute left-sided pelvic fracture. Plan: The fracture does not appear to be acute at this time. The patient may be weightbearing as to lerated on her bilateral lower extremities and she may follow up in my clinic as needed. Physical Seth gutiérrez may be consulted to aid with mobilization. CV/MODL Voice ID: [id number] Report ID: [id number]
[2019-11-07 06:14] LABS: Potassium 4.3 mmol/L (3.5-5.1)
[2019-11-07 06:22] LABS: Absolute Lymphocytes (CBC) 1.2 K/uL (0.7-4.9); Basophils % 1.8 % (0-1.3); Hematocrit 32.9 % (36.0-45.0); Lymphocytes % 31.7 % (15.3-44.8); MPV 7.4 fL (7.6-11.3); RBC Red Blood Cell Count 3.53 M/uL (3.86-4.86)
[2019-11-07] MEDS: CALCIUM CARB 500MG/VIT D 200 IU TAB PO SCH ×2 (09:00→21:03)
[2019-11-07] MEDS ORDERED: FUROSEMIDE 20 MG TABLET PO SCH (09:00)
[2019-11-07] MEDS ORDERED: lisinopriL 20 MG TAB PO SCH (09:00)
[2019-11-07] MEDS ORDERED: LACTOBACILLUS/ACIDOPHILUS TAB PO SCH (09:00)
[2019-11-07] MEDS: CRANBERRY FRUIT EXTRACT 200 MG CAP PO SCH ×2 (09:00→21:02)
[2019-11-07] MEDS: ESTRADIOL APPL VAG SCH (09:00)
[2019-11-07] MEDS: AMOX/K CLAV 500 MG TAB PO SCH ×2 (09:21→21:04)
[2019-11-07] MEDS: lisinopriL 10 MG TAB PO SCH (09:21)
[2019-11-07] MEDS: VANCOMYCIN ORAL SOLN 250 MG/5 ML OSYR PO SCH ×4 (09:21→21:03)
[2019-11-07] MEDS: LACTOBACILLUS/ACIDOPHILUS TAB PO SCH ×2 (09:21→21:04)
[2019-11-07] MEDS: MONTELUKAST 10 MG TAB PO SCH (09:21)
[2019-11-07] MEDS: APIXABAN 5 MG TABLET PO SCH ×2 (09:21→21:03)
[2019-11-07] MEDS: HYDROCORTISONE 1 % CREAM 30GM TOP SCH ×2 (09:25→21:05)
--- NOTE | 2019-11-07 14:15 | RAD REPORT ---
EXAM DESCRIPTION: US - UPPER EXTREMITY VENOUS UNILATE - 11/07/2019 2:06 pm CLINICAL HISTORY: Swelling to the left arm, r/o DVT Left arm swelling and edema. COMPARISON: No comparisons FINDINGS: Left upper extremity venous system was interrogated with Doppler technique. Normal flow, c ompressibility and augmentation was noted. There is no DVT present. IMPRESSION: No evidence of left upper extremity deep venous thrombosis.
--- NOTE | 2019-11-07 14:29 | P.PN ---
Subjective Date of Service: 11/07/19 Primary Care Provider: Dr. Morales-[place](SNF) Chief Complaint: Left upper extremity redness Subjective: Improving, Doing well Physical Examination - Vital Signs Temperature: 97.6 F Blood Pressure: 160/60 Pulse: 73 Respirations: 18 Pulse Ox (%): 94 - Physical Exam General: Alert, Cooperative HEENT: Atraumatic Neck: Supple Respiratory: Clear to auscultation bilaterally, Normal air movement Cardiovascular: Normal pulses, Regular rate/rhythm Musculoskeletal: Other (Erythema to the left upper extremity improved) Neurological: Normal speech, Normal strength at 5/5 x4 extr, Normal tone - Studies Microbiology Data (last 24 hrs): 11/05/19 11:20 Clean Catch Urine [place] Count - Final 11/05/19 11:20 Clean Catch Urine - Final No growth. Medications List Reviewed: Yes Assessment & Plan Discharge Plan: Other (senior care facility) Plan to discharge in: 24 Hours Physician Review Additional Text: Impression: Fall with recent weakness Left arm cellulitis Subacute comminuted inferior pubic ramus fracture and comminuted superior pubic ramus fracture Hypertension Hyperlipidemia Depression with anxiety History of C diff colitis currently on antibiotic therapy History of pulmonary embolism currently on chronic anti coagulation therapy Plan: Fall with recent weakness: Continue with physical therapy. Venous Doppler to the left upper extremity negative. Await approval to go back to the skilled facility. Patient with history of pelvic fracture. This was from a previous fall. CT confirms subacute fracture. Orthopedics recommends no intervention at this time. Spoke with family at length. Patient to return to skilled facility once approved. Left arm cellulitis: Continue antibiotic therapy. Venous Doppler negative. Will transition to oral medication. Subacute comminuted inferior pubic ramus fracture and comminuted superior pubic ramus fracture: Continue as above. Physical therapy and occupational therapy consulted. Orthopedics recommend no need for intervention. Continue physical therapy. Hypertension: Continue medication. Hyperlipidemia: Continue with medication. Depression with anxiety: Continue with medication. History of C diff colitis currently on antibiotic therapy: Continue with oral vancomycin. Case discussed with GI. Patient will continue with oral vancomycin as directed previously. History of pulmonary embolism currently on chronic anti coagulation therapy: Continue with medication. Time Spent Managing Pts Care (In Minutes): 55
[2019-11-07] MEDS: FLUOXETINE 10 MG CAP PO SCH (16:34)
[2019-11-07] MEDS: ACETAMINOPHEN 500 MG TAB PO PRN (21:04)
[2019-11-07] MEDS: ATORVASTATIN 40 MG TAB PO SCH (21:04)
[2019-11-08 05:42] LABS: Absolute Lymphocytes (CBC) 1.2 K/uL (0.7-4.9); Basophils % 0.8 % (0-1.3); Hematocrit 36.1 % (36.0-45.0); Lymphocytes % 28.7 % (15.3-44.8); MPV 7.3 fL (7.6-11.3); RBC Red Blood Cell Count 3.84 M/uL (3.86-4.86)
[2019-11-08 05:58] LABS: Potassium 4.3 mmol/L (3.5-5.1)
[2019-11-08] MEDS: ESTRADIOL APPL VAG SCH (09:00)
[2019-11-08] MEDS: CALCIUM CARB 500MG/VIT D 200 IU TAB PO SCH ×2 (09:00→20:03)
--- NOTE | 2019-11-08 09:05 | P.PN ---
Subjective Date of Service: 11/08/19 Primary Care Provider: Dr. Morales-[place]([facility]) Chief Complaint: Left upper extremity redness Subjective: Improving, Doing well Physical Examination - Vital Signs Temperature: 97.3 F Blood Pressure: 137/69 Pulse: 68 Respirations: 16 Pulse Ox (%): 92 - Physical Exam General: Alert HEENT: Atraumatic Neck: Supple Respiratory: Clear to auscultation bilaterally, Normal air movement Cardiovascular: Normal pulses, Regular rate/rhythm Gastrointestinal: Normal bowel sounds, No masses, No rebound, No guarding Musculoskeletal: Other (Erythema to the left arm almost resolved.) Neurological: Normal speech, Normal strength at 5/5 x4 extr, Normal tone - Studies Microbiology Data (last 24 hrs): 11/05/19 11:20 Clean Catch Urine [place] Count - Final 11/05/19 11:20 Clean Catch Urine - Final No growth. Medications List Reviewed: Yes Assessment & Plan Discharge Plan: Other (prison facility) Plan to discharge in: 24 Hours Physician Review Additional Text: Impression: Fall with recent weakness Left arm cellulitis Subacute comminuted inferior pubic ramus fracture and comminuted superior pubic ramus fracture Hypertension Hyperlipidemia Depression with anxiety History of C diff colitis currently on antibiotic therapy History of pulmonary embolism currently on chronic anti coagulation therapy Plan: Fall with recent weakness: Continue with physical therapy. Venous Doppler to the left upper extremity negative. Awaiting approval the patient to go back to skilled facility to continue rehab. CT scan reviewed with orthopedics. No intervention required at this time. Orthopedics recommends to continue physical therapy. Fall precautions in place. Anticipate discharge to skilled facility today once approved by insurance. Left arm cellulitis: Continue antibiotic therapy. Venous Doppler negative. Will transition to oral medication for total 7 days. Subacute comminuted inferior pubic ramus fracture and comminuted superior pubic ramus fracture: Continue as above. Physical therapy and occupational therapy consulted. Orthopedics recommend no need for intervention. Continue physical therapy. Hypertension: Continue medication. Hyperlipidemia: Continue with medication. Depression with anxiety: Continue with medication. History of C diff colitis currently on antibiotic therapy: Continue with oral vancomycin as recommended previously through December. Recommend to recheck C diff at that time to monitor eradication of C diff. Recommend follow up with GI as directed. History of pulmonary embolism currently on chronic anti coagulation therapy: Continue with medication. Time Spent Managing Pts Care (In Minutes): 55
[2019-11-08] MEDS: lisinopriL 10 MG TAB PO SCH (09:09)
[2019-11-08] MEDS: APIXABAN 5 MG TABLET PO SCH ×2 (09:09→20:03)
[2019-11-08] MEDS: LACTOBACILLUS/ACIDOPHILUS TAB PO SCH ×2 (09:09→20:04)
[2019-11-08] MEDS: MONTELUKAST 10 MG TAB PO SCH (09:09)
[2019-11-08] MEDS: AMOX/K CLAV 500 MG TAB PO SCH ×2 (09:09→20:03)
[2019-11-08] MEDS: CRANBERRY FRUIT EXTRACT 200 MG CAP PO SCH ×2 (09:09→20:02)
[2019-11-08] MEDS: VANCOMYCIN ORAL SOLN 250 MG/5 ML OSYR PO SCH ×4 (09:10→20:02)
[2019-11-08] MEDS: HYDROCORTISONE 1 % CREAM 30GM TOP SCH ×2 (09:15→20:04)
[2019-11-08] MEDS: FLUOXETINE 10 MG CAP PO SCH (16:51)
[2019-11-08] MEDS: ATORVASTATIN 40 MG TAB PO SCH (20:03)
[2019-11-09 07:28] LABS: Absolute Lymphocytes (CBC) 1.5 K/uL (0.7-4.9); Hematocrit 35.5 % (36.0-45.0); Lymphocytes % 28.4 % (15.3-44.8); MPV 7.6 fL (7.6-11.3); RBC Red Blood Cell Count 3.78 M/uL (3.86-4.86)
[2019-11-09 07:44] LABS: BUN Blood Urea Nitrogen 12 mg/dL (7-18); Bicarbonate 31 mmol/L (21-32); Glucose Level 112 mg/dL (74-106); Magnesium 1.9 mg/dL (1.8-2.4); Potassium 4.5 mmol/L (3.5-5.1); Sodium Level 139 mmol/L (136-145)
[2019-11-09] MEDS: VANCOMYCIN ORAL SOLN 250 MG/5 ML OSYR PO SCH ×4 (08:58→21:54)
[2019-11-09] MEDS: AMOX/K CLAV 500 MG TAB PO SCH ×2 (08:58→21:55)
[2019-11-09] MEDS: LACTOBACILLUS/ACIDOPHILUS TAB PO SCH ×2 (08:58→21:55)
[2019-11-09] MEDS: MONTELUKAST 10 MG TAB PO SCH (08:59)
[2019-11-09] MEDS: CALCIUM CARB 500MG/VIT D 200 IU TAB PO SCH ×2 (08:59→21:00)
[2019-11-09] MEDS: lisinopriL 10 MG TAB PO SCH (08:59)
[2019-11-09] MEDS: CRANBERRY FRUIT EXTRACT 200 MG CAP PO SCH ×2 (08:59→21:55)
[2019-11-09] MEDS: APIXABAN 5 MG TABLET PO SCH ×2 (08:59→21:55)
[2019-11-09] MEDS: ESTRADIOL APPL VAG SCH (09:00)
[2019-11-09] MEDS: HYDROCORTISONE 1 % CREAM 30GM TOP SCH ×2 (09:10→21:00)
[2019-11-09] MEDS: FLUOXETINE 10 MG CAP PO SCH (17:17)
--- NOTE | 2019-11-09 17:23 | PN ---
Subjective: Currently, patient lying in bed. She looks comfortable. She has no chest pain. No abd ominal pain. No fever overnight. No chills. No nausea or vomiting. She is eating her lunch and ho ping that she can go home soon or to the facility. Review of Systems: Otherwise negative. Physical Examination: Vital Signs: Current, blood pressure is 149/63, respiratory rate 17, pulse 65, temperature 97.5, sat urating 96% on room air. General: Patient is alert and oriented x3. Does not look in any distress. HEENT: Atraumatic, normocephalic. PERRLA. EOMI. Mucosa is moist. Neck: Supple. No JVD. No carotid bruits. Chest: Clear to auscultation. Good air entry. Heart: Regular rate and rhythm. S1 and S2 are normal. No gallop or murmur. Abdomen: Soft, nontender . Positive bowel sounds. Extremities: No clubbing, cyanosis, or edema. No calf tenderness. Neurologic: Grossly intact. Laboratory Data: Today, CBC was normal except for hemoglobin 11.8. Chemistry was normal except for glucose 112. Assessment And Plan: 1.Generalized weakness with history of fall. The patient improved with physical therapy left upper extremity was negative. The patient will be needed to go back to a senior care facili according to the charge nurse. Insurance is still pending. So, patient will not be able to go un monday. Continue . CT was done and reviewed by Orthopedic and they advised comminuted inferior pubic ramus fracture included superior ramus fracture that may indicate acute, s o Ortho advised just continue physical therapy. 2.Left arm cellulitis, on antibiotic. Doppler was negative for deep venous thrombosis. She is stil l on Augmentin 500 mg twice a day, continue. 3.Subacute comminuted inferior pubic ramus fracture and comminuted superior pubic ramus fracture, it seems not acute. Continue physical therapy, occupational therapy. Orthopedic recommended no interv ention. 4.Hypertension, well controlled. 5.Hyperlipidemia. Continue on statin. 6.History of depression and anxiety. Continue home medication with Prozac. 7.Chronic obstructive pulmonary disease, continue on Singulair. 8.Insomnia. Continue on Ambien. 9.History of pulmonary embolism. Patient on Eliquis 5 mg twice a day. 10.No need for deep venous thrombosis prophylaxis. Patient on Eliquis. 11.History of Clostridium difficile colitis. Continue oral vancomycin as recommended previously thr [facility] [place] December 2019. Recheck C diff to monitor indication of C diff as an outpatient as recommended by Lucille Angulo. Expected discharge in the next 48 hours after approval by insurance on Monday. TALA/ANNA Voice ID: [id number] Report ID: [id number]
[2019-11-09] MEDS: ATORVASTATIN 40 MG TAB PO SCH (21:56)
[2019-11-09] MEDS: ACETAMINOPHEN 500 MG TAB PO PRN (22:04)
[2019-11-10] MEDS: ESTRADIOL APPL VAG SCH (09:00)
[2019-11-10] MEDS: VANCOMYCIN ORAL SOLN 250 MG/5 ML OSYR PO SCH ×4 (09:16→20:32)
[2019-11-10] MEDS: lisinopriL 10 MG TAB PO SCH (09:17)
[2019-11-10] MEDS: MONTELUKAST 10 MG TAB PO SCH (09:17)
[2019-11-10] MEDS: CALCIUM CARB 500MG/VIT D 200 IU TAB PO SCH ×2 (09:17→20:32)
[2019-11-10] MEDS: APIXABAN 5 MG TABLET PO SCH ×2 (09:17→20:32)
[2019-11-10] MEDS: CRANBERRY FRUIT EXTRACT 200 MG CAP PO SCH ×2 (09:17→20:31)
[2019-11-10] MEDS: LACTOBACILLUS/ACIDOPHILUS TAB PO SCH ×2 (09:17→20:32)
[2019-11-10] MEDS: HYDROCORTISONE 1 % CREAM 30GM TOP SCH ×2 (09:20→20:33)
[2019-11-10] MEDS: AMOX/K CLAV 500 MG TAB PO SCH ×2 (09:31→20:32)
[2019-11-10] MEDS: FLUOXETINE 10 MG CAP PO SCH (16:41)
--- NOTE | 2019-11-10 17:24 | PN ---
Subjective: Currently, patient lying in bed. She looks comfortable. She has no chest pain. No abd ominal pain. No fever, no chills. Review of Systems: Otherwise negative. Objective: Vital Signs: Blood pressure 121/58, respiratory rate 15, pulse 73, temperature 99. General: Patient is alert and oriented x3. Does not look in any distress. HEENT: Atraumatic, normocephalic. PERRLA. EOMI. Mucosa is moist. Neck: Supple. No JVD. No bruits. Chest: Clear to auscultation. Good air entry. Heart: Regular rate and rhythm. S1, S2 normal. No gallop or murmur. Abdomen: Soft, nontender. No masses. No hepatosplenomegaly. Positive bowel sounds. Extremities: No clubbing, cyanosis, or edema. No calf tenderness. Neurologic: Grossly intact. Laboratory Data: Yesterday, CBC was normal except for hemoglobin 11.8. Chemistry also normal from y esterday. Assessment And Plan: 1.Generalized weakness with history of fall. Patient's weakness improved with physical therapy. He r discharge is pending acceptance at the rehab from the insurance. She already had a CAT scan of the pelvis, which showed comminuted inferior pubic ramus fracture as well as comminuted superior pubic r amus fracture, both were subacute rather than acute. Also, aware and elected conservative management with physical therapy. The patient needs to go to rehab for more physical therapy. 2.Left arm cellulitis, on antibiotic. Doppler was negative for thrombosis. Patient is on Augmentin 500 mg twice a day. 3.Hypertension, well controlled. 4.Hyperlipidemia, on statin. 5.History of depression and anxiety. Continue Prozac. 6.Chronic obstructive pulmonary disease history, currently on Singulair inhaler. 7.Insomnia, well controlled on Ambien. 8.History of pulmonary embolism. Patient on Eliquis 5 mg twice a day. 9.History of Clostridium difficile colitis. The patient on oral vancomycin. Continue with that thr ouDecember 2019 and repeat clostridium difficile screening then to make sure patient cleared. 10.No need for deep venous thrombosis prophylaxis. Patient on Eliquis. 11.Discharge plan discussed with the case management. This morning, she advised to discharge the pa isha back to the residential. Upon my arrival to the floor, I discussed with charge nurse and he a dvised that we cannot send patient to residential because she needs rehab first. The charge nurse [place] caseworker to clarify her plan, she did not respond. I called her personally. I also tick t hat she did not respond. Patient will stay on the floor tonight until tomorrow morning when case man agement is available to finalize discharge plan. GARETH Voice ID: [id number] Report ID: [id number]
[2019-11-10] MEDS: ATORVASTATIN 40 MG TAB PO SCH (20:32)
[2019-11-11 05:58] LABS: Absolute Lymphocytes (CBC) 1.5 K/uL (0.7-4.9); Lymphocytes % 25.9 % (15.3-44.8); MPV 7.3 fL (7.6-11.3); RBC Red Blood Cell Count 3.69 M/uL (3.86-4.86)
[2019-11-11 06:27] LABS: Albumin 2.7 g/dL (3.4-5.0); Bilirubin Total 0.6 mg/dL (0.2-1.0); Potassium 4.6 mmol/L (3.5-5.1); Protein, Total 6.1 g/dL (6.4-8.2)
[2019-11-11] MEDS: CALCIUM CARB 500MG/VIT D 200 IU TAB PO SCH ×2 (09:00→20:04)
[2019-11-11] MEDS: ESTRADIOL APPL VAG SCH (09:00)
[2019-11-11] MEDS: HYDROCORTISONE 1 % CREAM 30GM TOP SCH ×2 (09:00→20:08)
[2019-11-11] MEDS: APIXABAN 5 MG TABLET PO SCH ×2 (09:35→20:04)
[2019-11-11] MEDS: MONTELUKAST 10 MG TAB PO SCH (09:35)
[2019-11-11] MEDS: LACTOBACILLUS/ACIDOPHILUS TAB PO SCH ×2 (09:35→20:01)
[2019-11-11] MEDS: CRANBERRY FRUIT EXTRACT 200 MG CAP PO SCH ×2 (09:35→20:02)
[2019-11-11] MEDS: lisinopriL 10 MG TAB PO SCH (09:35)
[2019-11-11] MEDS: AMOX/K CLAV 500 MG TAB PO SCH ×2 (09:35→20:03)
[2019-11-11] MEDS: VANCOMYCIN ORAL SOLN 250 MG/5 ML OSYR PO SCH ×4 (09:36→20:03)
--- NOTE | 2019-11-11 12:42 | P.PN ---
Subjective Date of Service: 11/11/19 Primary Care Provider: Dr. Morales-ID([facility]) Chief Complaint: Left upper extremity redness Subjective: No new changes, No C/O voiced Review of Systems 10-point ROS is otherwise unremarkable Physical Examination - Vital Signs Temperature: 97.5 F Blood Pressure: 131/62 Pulse: 67 Respirations: 18 Pulse Ox (%): 94 - Physical Exam General: Alert, Oriented x3 HEENT: Atraumatic, Normocephalic Neck: Supple, 2+ carotid pulse no bruit Respiratory: Clear to auscultation bilaterally, Normal air movement Cardiovascular: No edema, Normal pulses, Regular rate/rhythm Gastrointestinal: Normal bowel sounds, Soft and benign Musculoskeletal: No clubbing, No swelling Neurological: Dementia External genitalia: No edema, No lesions - Studies Laboratory Last Values WBC 5.8 K/uL (4.3-10.9) 11/11/19 05:38 RBC 3.69 M/uL (3.86-4.86) L 11/11/19 05:38 Hgb 11.7 g/dL (12.0-15.0) L 11/11/19 05:38 Hct 35.0 % (36.0-45.0) L 11/11/19 05:38 MCV 94.9 fL (80-100) 11/11/19 05:38 MCH 31.7 pg (27.0-35.0) 11/11/19 05:38 MCHC 33.4 g/dL (32.0-36.0) 11/11/19 05:38 RDW 13.9 % (12.1-15.2) 11/11/19 05:38 Plt Count 249 K/uL (152-406) 11/11/19 05:38 MPV 7.3 fL (7.6-11.3) L 11/11/19 05:38 Neutrophils % 54.1 % (41.7-73.7) 11/11/19 05:38 Lymphocytes % 25.9 % (15.3-44.8) 11/11/19 05:38 Monocytes % 9.7 % (3.3-12.3) 11/11/19 05:38 Eosinophils % 9.3 % (0-4.4) H 11/11/19 05:38 Basophils % 1.0 % (0-1.3) 11/11/19 05:38 Absolute Neutrophils 3.2 K/uL (1.8-8.0) 11/11/19 05:38 Absolute Lymphocytes 1.5 K/uL (0.7-4.9) 11/11/19 05:38 Absolute Monocytes 0.6 K/uL (0.1-1.3) 11/11/19 05:38 Absolute Eosinophils 0.5 K/uL (0-0.5) 11/11/19 05:38 Absolute Basophils 0.1 K/uL (0-0.5) 11/11/19 05:38 PT 15.8 SECONDS (9.5-12.5) H 11/05/19 10:13 INR 1.35 11/05/19 10:13 Sodium 140 mmol/L (136-145) 11/11/19 05:38 Potassium 4.6 mmol/L (3.5-5.1) 11/11/19 05:38 Chloride 104 mmol/L (98-107) 11/11/19 05:38 Carbon Dioxide 32 mmol/L (21-32) 11/11/19 05:38 BUN 13 mg/dL (7-18) 11/11/19 05:38 Creatinine 0.67 mg/dL (0.55-1.3) 11/11/19 05:38 Estimated GFR 85 mL/min (=/>90) L 11/11/19 05:38 Glucose 103 mg/dL (74-106) 11/11/19 05:38 Calcium 9.7 mg/dL (8.5-10.1) 11/11/19 05:38 Phosphorus 3.1 mg/dL (2.5-4.9) 11/06/19 05:36 Magnesium 1.9 mg/dL (1.8-2.4) 11/09/19 06:12 Total Bilirubin 0.6 mg/dL (0.2-1.0) 11/11/19 05:38 Direct Bilirubin 0.2 mg/dL (0-0.2) 11/05/19 10:13 AST 15 U/L (15-37) 11/11/19 05:38 ALT 22 U/L (12-78) 11/11/19 05:38 Alkaline Phosphatase 76 U/L (45-117) 11/11/19 05:38 Rapid Troponin I < 0.02 ng/mL (0.0-0.045) 11/05/19 10:13 NT-Pro-B Natriuret Pep 57 pg/mL (<450) 11/05/19 10:13 Serum Total Protein 6.1 g/dL (6.4-8.2) L 11/11/19 05:38 Albumin 2.7 g/dL (3.4-5.0) L 11/11/19 05:38 Globulin 3.4 g/dL (2.3-3.5) 11/11/19 05:38 Albumin/Globulin Ratio 0.8 (1.1-1.8) L 11/11/19 05:38 Procalcitonin < 0.05 ng/mL (<0.50) 11/06/19 11:50 TSH 2.710 uIU/mL (0.360-3.740) 11/05/19 15:51 ABO/Rh A POSITIVE 11/05/19 10:13 Antibody Screen Negative 11/05/19 10:13 Medications List Reviewed: Yes Assessment & Plan - Problems (Diagnosis) (1) C. difficile colitis Current Visit: Yes Status: Acute (2) HTN (hypertension) Current Visit: Yes Status: Acute (3) Weakness Current Visit: Yes Status: Acute Plan to discharge in: 24 Hours Physician Review: Patient Assessed, Agree with Above Assessment and Plan Physician Review Additional Text: Impression: Fall with recent weakness Left arm cellulitis Subacute comminuted inferior pubic ramus fracture and comminuted superior pubic ramus fracture Hypertension Hyperlipidemia Depression with anxiety History of C diff colitis currently on antibiotic therapy History of pulmonary embolism currently on chronic anti coagulation therapy Plan: -continue oral abx for LE cellulitis - continue vanco for C diff -await placement
[2019-11-11] MEDS: FLUOXETINE 10 MG CAP PO SCH (16:29)
[2019-11-11] MEDS: ATORVASTATIN 40 MG TAB PO SCH (20:02)
[2019-11-12 05:59] LABS: Absolute Lymphocytes (CBC) 1.8 K/uL (0.7-4.9); Basophils % 0.9 % (0-1.3); Hematocrit 32.3 % (36.0-45.0); MPV 7.4 fL (7.6-11.3); RBC Red Blood Cell Count 3.46 M/uL (3.86-4.86)
[2019-11-12 06:16] LABS: Albumin 2.7 g/dL (3.4-5.0); Bilirubin Total 0.7 mg/dL (0.2-1.0); Magnesium 1.8 mg/dL (1.8-2.4); Phosphorus 3.5 mg/dL (2.5-4.9); Potassium 4.2 mmol/L (3.5-5.1)
[2019-11-12] MEDS: ESTRADIOL APPL VAG SCH (09:00)
[2019-11-12] MEDS: CALCIUM CARB 500MG/VIT D 200 IU TAB PO SCH ×2 (09:00→20:55)
[2019-11-12] MEDS ORDERED: MAGNESIUM SULFATE 1 gm IVPB 1 GM/100 ML BAG IV ONE (09:00)
[2019-11-12] MEDS: HYDROCORTISONE 1 % CREAM 30GM TOP SCH ×2 (09:32→20:58)
[2019-11-12] MEDS: VANCOMYCIN ORAL SOLN 250 MG/5 ML OSYR PO SCH ×4 (09:32→20:56)
[2019-11-12] MEDS: lisinopriL 10 MG TAB PO SCH (09:33)
[2019-11-12] MEDS: MONTELUKAST 10 MG TAB PO SCH (09:34)
[2019-11-12] MEDS: CRANBERRY FRUIT EXTRACT 200 MG CAP PO SCH ×2 (09:34→20:55)
[2019-11-12] MEDS: AMOX/K CLAV 500 MG TAB PO SCH ×2 (09:34→20:55)
[2019-11-12] MEDS: LACTOBACILLUS/ACIDOPHILUS TAB PO SCH ×2 (09:35→20:55)
[2019-11-12] MEDS: APIXABAN 5 MG TABLET PO SCH ×2 (10:19→20:55)
--- NOTE | 2019-11-12 15:46 | PN ---
Date of Progress Note: 11/12/2019 Subjective: Patient is seen and examined. Chart reviewed and case discussed with RN. Code status is full. Patient denies any acute events overnight. Doing well overall. Medications: List reviewed. Code status: Full Physical Examination: Vital Signs: Temperature 99.9, heart rate 70, blood pressure 126/60, respirations 18, O2 of 95% on room air. General: Awake, alert, oriented x3. Elderly female, not in any acute distress. CV: S1, S2. Respiratory: Moving air well bilaterally. No wheezing or stridor. Gastrointestinal: Abdomen is soft, nontender, nondistended. Positive bowel sounds. Extremities: No clubbing, cyanosis, or edema. Neurologic: Nonfocal. Laboratory Data: Sodium 139, potassium 4.2, chloride 104, CO2 of 32, BUN 17, creatinine 0.67, glucose 106, calcium 9.2, phosphorus 3.5, magnesium 1.8, albumin 2.7. WBC 6.4, H and H 11.2 and 32.3, platelets 255, neutrophils 52%. Blood cultures, no growth to date. Urine culture, no growth. Assessment: A 79-year-old female with: 1. Status post fall. 2. Generalized weakness. We will continue with PT. 3. Left arm cellulitis, improving. Cultures are negative. Continue antibiotics. 4. Subacute comminuted inferior pubic ramus fracture and comminuted superior pubic ramus fracture, stable. 5. Essential hypertension, stable. 6. Mixed hyperlipidemia, stable. 7. Depression with anxiety, stable. 8. History of Clostridium difficile colitis, currently on antibiotic therapy. 9. History of pulmonary embolism, on chronic anticoagulation. Plan: Continue oral vancomycin for C diff and oral antibiotics for cellulitis. Awaiting placement. SA/MODL Voice ID: [id number] Report ID: [id number]
[2019-11-12] MEDS: FLUOXETINE 10 MG CAP PO SCH (17:01)
[2019-11-12] MEDS: ATORVASTATIN 40 MG TAB PO SCH (20:55)
[2019-11-13 05:49] LABS: Absolute Lymphocytes (CBC) 1.8 K/uL (0.7-4.9); Basophils % 0.7 % (0-1.3); Hematocrit 32.9 % (36.0-45.0); Lymphocytes % 29.8 % (15.3-44.8); MPV 7.7 fL (7.6-11.3); RBC Red Blood Cell Count 3.51 M/uL (3.86-4.86)
[2019-11-13 05:53] LABS: Magnesium 1.9 mg/dL (1.8-2.4); Potassium 4.6 mmol/L (3.5-5.1)
[2019-11-13] MEDS: ESTRADIOL APPL VAG SCH (09:00)
[2019-11-13] MEDS: HYDROCORTISONE 1 % CREAM 30GM TOP SCH ×2 (09:00→21:00)
[2019-11-13] MEDS: CALCIUM CARB 500MG/VIT D 200 IU TAB PO SCH ×2 (09:00→21:00)
[2019-11-13] MEDS: VANCOMYCIN ORAL SOLN 250 MG/5 ML OSYR PO SCH ×2 (09:43→21:07)
[2019-11-13] MEDS: AMOX/K CLAV 500 MG TAB PO SCH ×2 (09:43→21:07)
[2019-11-13] MEDS: APIXABAN 5 MG TABLET PO SCH ×2 (09:43→21:07)
[2019-11-13] MEDS: CRANBERRY FRUIT EXTRACT 200 MG CAP PO SCH ×2 (09:43→21:07)
[2019-11-13] MEDS: lisinopriL 10 MG TAB PO SCH (09:44)
[2019-11-13] MEDS: LACTOBACILLUS/ACIDOPHILUS TAB PO SCH ×2 (09:44→21:09)
[2019-11-13] MEDS: MONTELUKAST 10 MG TAB PO SCH (09:45)
--- NOTE | 2019-11-13 17:16 | PN ---
Date of Progress Note: 11/13/2019 Subjective: Patient seen and examined. Chart reviewed and case discussed with RN. Patient did work with PT today, approximately 30 feet or so with assistance. Still having some erythema and pain in her left upper extremity. Medications: List reviewed. Physical Examination: Vital Signs: Temperature 97.5, heart rate 67, blood pressure 119/58, respirations 17, O2 94% on room air. General: Awake, alert, oriented x3. Elderly female. CV: S1, S2. Regular rate and rhythm. Peripheral pulses present. Respiratory: Moving air well bilaterally. No wheezing or stridor. Gastrointestinal: Abdomen is soft, nontender, nondistended. Positive bowel sounds. Extremities: No clubbing, cyanosis, or edema. Neurologic: Nonfocal. Skin: Patient has erythema of the left upper extremity, warm to touch, mild tenderness to palpation. Laboratory Data: Sodium 140, potassium 4.6, chloride 105, CO2 of 31, BUN 16, creatinine 0.77, glucose 103, calcium 8.8, magnesium 1.9. WBC 6.1, H and H 11 and 32.9, platelets 257, neutrophils 50%. Blood cultures, no growth to date. Assessment: 79-year-old female with: 1. Status post fall. 2. Generalized weakness. Continue physical therapy. Slowly improving. Still quite weak. 3. Left arm cellulitis. Still has erythema. No deep venous thrombosis on Doppler. Cultures are negative. White blood cell count improved. No signs of sepsis. We will continue antibiotics for now. 4. Subacute comminuted inferior pubic ramus fracture and comminuted superior pubic ramus fracture, stable. 5. Essential hypertension, stable. 6. Mixed hyperlipidemia, stable. 7. Depression with anxiety, stable. 8. History of Clostridium difficile colitis, recurrent, currently on p.o. vancomycin, apparently supposed to be on a taper. We will investigate further if the patient has been taking the q.6 dosing. If so, then can be switched down to b.i.d. dosing. 9. History of pulmonary embolism, on chronic anticoagulation. 10. Deep vein thrombosis prophylaxis, addressed. Patient is on Eliquis. Plan: Continue physical therapy. Awaiting SNF placement. Consider home w home health. Will contact daughter. Will discuss with case management. MALIHA Voice ID: [id number] Report ID: [id number]
[2019-11-13] MEDS: FLUOXETINE 10 MG CAP PO SCH (18:28)
[2019-11-13] MEDS: ATORVASTATIN 40 MG TAB PO SCH (21:06)
[2019-11-14 05:37] LABS: Absolute Lymphocytes (CBC) 1.8 K/uL (0.7-4.9); Hematocrit 32.9 % (36.0-45.0); Lymphocytes % 32.4 % (15.3-44.8); MPV 7.7 fL (7.6-11.3); RBC Red Blood Cell Count 3.48 M/uL (3.86-4.86)
[2019-11-14] MEDS: LACTOBACILLUS/ACIDOPHILUS TAB PO SCH (08:32)
[2019-11-14] MEDS: lisinopriL 10 MG TAB PO SCH (08:32)
[2019-11-14] MEDS: MONTELUKAST 10 MG TAB PO SCH (08:32)
[2019-11-14] MEDS: CALCIUM CARB 500MG/VIT D 200 IU TAB PO SCH (08:33)
[2019-11-14] MEDS: APIXABAN 5 MG TABLET PO SCH (08:33)
[2019-11-14] MEDS: VANCOMYCIN ORAL SOLN 250 MG/5 ML OSYR PO SCH (08:33)
[2019-11-14] MEDS: CRANBERRY FRUIT EXTRACT 200 MG CAP PO SCH (08:33)
[2019-11-14] MEDS: AMOX/K CLAV 500 MG TAB PO SCH (08:33)
[2019-11-14] MEDS: HYDROCORTISONE 1 % CREAM 30GM TOP SCH (08:34)
[2019-11-14] MEDS: ESTRADIOL APPL VAG SCH (08:34)
[2019-11-14 09:23] VITALS: O2SAT 93
[2019-11-14 13:30] VITALS: BP 113/56; TEMP 98
--- NOTE | 2019-11-14 23:47 | DS ---
Date of Discharge: 11/14/2019 Consultants: Dr. Goodwin with Orthopedics. Procedures: None. Admitting Diagnoses: 1.Status post fall. 2.Generalized weakness. 3.Left arm cellulitis. 4.History of pulmonary embolism. 5.History of C diff on oral vancomycin. 6.Essential hypertension. 7.Pelvic fracture, subacute. Discharge Diagnoses: 1.Status post fall. 2.Generalized weakness, improved. 3.Left arm cellulitis, improving. No deep vein thrombosis on Doppler. 4.Subacute comminuted inferior and superior pubic ramus fracture, stable. No intervention per Ortho pedics. 5.Essential hypertension, stable. 6.Mixed hyperlipidemia, stable. 7.Depression with anxiety, stable. 8.History of C diff colitis, recurrent, on p.o. vancomycin with tapering dose. 9.History of pulmonary embolism, on chronic anticoagulation. Hospital Course: The patient is a 79-year-old female, comes in after a fall in longterm. She wa s found to have a subacute fracture. This was evaluated and Orthopedics, Dr. Goodwin, was consulted. H e did not feel that this was acute. No intervention was recommended at this time. Patient also had some cellulitis of the left upper extremity. Doppler was done, which was negative for DVT. Head and CT cervical spine also showed no acute fractures or acute intracranial or cervical spine findings. She does have moderate generalized brain atrophy. Patient does have history of PE, is on anticoagula tion. She also has recent diagnosis of recurrent C difficile and is on a vancomycin taper. She was continued on the oral vancomycin and she was also started on antibiotics for her cellulitis. Celluli tis improved. Her white blood cell count normalized. She will finish off course of antibiotics for a total of 2 weeks. She has been switched to oral antibiotics. Patient did not have any signs of se psis. Her blood cultures were negative. Her urine culture did not show any growth. Patient was the n working with physical therapy. She was referred to shelter facility. She did well. She w as then accepted to shelter facility and was discharged in a stable condition. Medications: As per medication reconciliation list. Followup: Follow up with primary care physician in 2-3 days. Follow up with orthopedics, Dr. Goodwin, in 1-2 weeks and return to ER for worsening condition. Diet: Heart healthy. Activity: As per rehab. Fall precautions. Physical Examination: General: Awake, alert, elderly female, no acute distress. CV: S1-S2. Respiratory: Moving air well bilaterally. Abdomen: Abdomen is soft, nontender, nondistended. Positive bowel sounds. Extremities: No clubbing, cyanosis, or edema. Neurologic: Nonfocal. Skin: Minimal erythema of the left upper extremity. SA/MODL Voice ID: [id number] Report ID: [id number]
[2019-11-19] MEDS ORDERED: VANCOMYCIN ORAL SOLN 250 MG/5 ML OSYR PO SCH (09:00)
[2019-11-26] MEDS ORDERED: VANCOMYCIN ORAL SOLN 250 MG/5 ML OSYR PO SCH (09:00)
== END 2019-11-14 12:58 ==
LOC: ER 09:35 → ERHOLD 13:26 → 2ND 14:48
PROVIDERS: ADMIT Internal Medicine; ATTEND Internal Medicine
DX: L03.114 Cellulitis of left upper limb (principal); R53.1 Weakness; S32.599A Other specified fracture of unspecified pubis, initial encounter for closed fracture; I10 Essential (primary) hypertension; E78.2 Mixed hyperlipidemia; F41.8 Other specified anxiety disorders; A04.72 Enterocolitis due to Clostridium difficile, not specified as recurrent; Z86.711 Personal history of pulmonary embolism; Z79.01 Long term (current) use of anticoagulants; G47.00 Insomnia, unspecified; J44.9 Chronic obstructive pulmonary disease, unspecified
CPT/HCPCS: 93005; 87040 ×2; 87088; 85025 ×9; 80048 ×5; 36415 ×8; 86900; 83735 ×7; 86850; 84100 ×2; 85610; 86901; 80076; 84443; 84484; 80053 ×3; 84145; 83880; 70450; 72125; 72192; 71045; 72170; 73502; 73552; 93971; 97110 ×3; 97116 ×14; 97161; 97530 ×13; 94760 ×18; 51702; 96374; 99285; J1650 ×2; J3475; J0690; G0378 ×12; J7030; 87086